=== PATIENT | male | born 1970 | race Caucasian/White ===

== ENCOUNTER 2018-08-24 10:53 | Inpatient (IN) ==
--- NOTE | 2018-08-24 12:29 | Diag Imaging Result Doc PS360 ---
EXAM: CT THORAX W/O CONTRAST 08/24/2018 HISTORY: cracked sternum/hematoma TECHNIQUE: This exam was performed using automated exposure control, adjustment of mA or kV according to patient size, and/or use of iterative reconstruction technique. COMMENT: There are no previous studies available for comparison. There is sclerosis of the medial right clavicle particularly in comparison with the left medial clavicle. There is some apparent erosion of the articular surface at the manubrial sternal joint. There is soft tissue swelling surrounding the medial right clavicle. There is an apparent old fracture of the right first rib. The sternum is intact. There is vacuum joint phenomenon at the manubrial sternal joint which is probably due to arthritis. There is some vacuum phenomenon in the left first costal cartilage. There are small bilateral pleural fluid collections. There is atelectasis or pneumonia in the posterior costophrenic sulci. There is a cavitary lesion present laterally in the left lower lobe on image 96. The outer borders of the relatively thick maradiaga extend 2.4 cm in AP dimension. There is apparent atelectatic change in the right lower lobe superior segment. There is an aorticopulmonary window node measuring 17 mm in long axis. There is a right paratracheal node measuring over 15 mm. There is anterior mediastinal soft tissue density which displaces the anterior apical pleura on the right and has somewhat poorly defined borders posteriorly. This appears to be continuous with the soft tissue swelling around the medial head of the right clavicle. IMPRESSION: 1. Sclerosis of the medial right clavicle and surrounding soft tissue swelling/mass/hematoma. 2. Mediastinal adenopathy as described. 3. Atelectasis versus pneumonia right lower lobe. Bibasilar subsegmental atelectasis. Small bilateral pleural effusions. 4. Poorly defined thick walled cavity in the left lower lobe. This could represent an abscess or cavitary tumor. Electronically signed by Gui Winslow 08/24/2018 12:26 PM
[2018-08-24 13:39] LABS: BASO# 0.03 X1000 (0.0-0.2); BASO% 0.2 % (0.0-0.8); EOS# 0.06 X1000 (0.0-0.7); EOS% 0.4 % (0.0-10.0); HEMOGLOBIN 17.4 g/dL (14.0-18.0); IMM GRAN# 0.13 X1000 (0.0-0.04); IMM GRAN% 0.8 % (0.0-0.5); LYMPH% 17.1 % (20.5-51.1); MCH 29.8 PG (27-31); MCHC 33.5 g/dL (33-37); MONO% 12.9 % (1.7-9.3); MPV 8.3 FL (7.4-10.4); NEUT# 11.21 X1000 (1.4-6.5); NEUT% 68.6 % (42.2-75.2); PLT 681 X1000 (130-400); RBC 5.84 XMIL (4.7-6.1); WBC 16.33 X1000 (4.8-10.8)
[2018-08-24 14:03] LABS: AGAP 18; ALB/GLOB RATIO 1.1; ALBUMIN 3.9 g/dL (3.5-5.0); ALKALINE PHOSPHATASE 215 U/L (32-122); BUN 19 mg/dL (8-22); CALCIUM 9.4 mg/dL (8.8-10.2); CHLORIDE 92 mmol/L (98-107); COSMO 265; CREATININE 0.7 mg/dL (0.7-1.2); ESTIMATED GFR > 60; GLUCOSE 102 mg/dL (70-104); GOT 20 U/L (10-34); GPT 30 U/L (10-44); POTASSIUM 5.5 mmol/L (3.5-5.1); SODIUM 131 mmol/L (136-145); TCO2 21 mmol/L (25-35); TOTAL BILIRUBIN 0.53 mg/dL (0.20-1.00); TOTAL PROTEIN 7.5 g/dL (6.3-8.3)
[2018-08-24] MEDS ORDERED: NS 1,000 ML IV ONE (14:40)
[2018-08-24] MEDS ORDERED: VANCOMYCIN IV PER PHARMACY MISC SCH (14:45)
--- NOTE | 2018-08-24 15:42 | EKG Report ---
Test Performed on : 08/24/2018 11:09:04 AM Test Reason : CP Blood Pressure : / mmHG Vent. Rate : 110 BPM Atrial Rate : 110 BPM P-R Int : 174 ms QRS Dur : 068 ms QT Int : 310 ms P-R-T Axes : 038 037 039 degrees QTc Int : 419 ms Sinus tachycardia. Septal infarct (cited on or before 24-AUG-2018) Abnormal ECG When compared with ECG of 24-AUG-2018 11:06, (Unconfirmed) QRS axis shifted left Serial changes of evolving Septal infarct present Unconfirmed Result
[2018-08-24] MEDS ORDERED: VANCOMYCIN 2,000 MG in NS 500 ML IV ONE (16:00)
--- NOTE | 2018-08-24 16:11 | PROVIDER DOCUMENTATION ---
This chart was entered by Liza Melara Scribe, acting as scribe for Piper Reeves CRNP. HPI-General Adult - General Chief Complaint: Generalized Pain Stated Complaint: "BROKEN STERNUM / BLOOD CLOT" Time Seen by Provider: 08/24/18 13:34 Source: patient Allergies/Adverse Reactions: Patient Allergies Allergy/AdvReac Type Severity Reaction Status Date / Time Penicillins Allergy Unknown Unknown Verified 09/22/17 19:47 Home Medications: Home Medication List Medication Instructions Recorded Confirmed Last Taken Type Cyclobenzaprine [Flexeril] 10 mg PO TID PRN #20 tab 09/22/17 Unknown Rx Hydrocodone/Acetaminophen [Lavalette 1 ea PO Q4-6H PRN PRN #14 tab 09/22/17 Unknown Rx 7.5-325 Tablet] Ibuprofen [Motrin] 800 mg PO Q8H PRN PRN #30 tab 09/22/17 Unknown Rx Diclofenac Na D.r. [Voltaren] 50 mg PO 4XDAY #20 tab 09/27/17 Unknown Rx Methocarbamol [Robaxin-750] 750 mg PO TID #15 tab 09/27/17 Unknown Rx Omeprazole [Prilosec] 20 mg PO DAILY@0700 #20 cap 09/27/17 Unknown Rx Hydroxyzine Pamoate [Vistaril] 25 mg PO BID PRN #20 cap 01/19/18 Unknown Rx - History of Present Illness -Gen Adult Nature of Presenting Problems: Patient is a 48 year old male who presents to the ED with right upper chest pain. Patient states he was discharged August 19 after being admitted at [facility] for a cracked sternum. Patient denies having another injury to sternum. Patient states the norco is not controlling the pain. Patient states shortness of breath. Location of Pain/Injury: reports: chest (right upper) Pain Radiation: reports: no radiation Quality of Pain: reports: aching Severity: reports: moderate Onset/Duration: reports: gradual, 6 days ago Timing: reports: still present, getting worse Context/Activities at Onset: reports: light activity Modifying Factors: improves with: nothing Associated Symptoms: reports: shortness of breath Similar Symptoms Previously?: Yes Recently seen or treated by another doctor?: Yes Review of Systems - Adult - REVIEW OF SYSTEMS - ADULT Constitutional: reports: no symptoms reported Eyes: reports: no symptoms reported Ears, Nose, Mouth & Throat: reports: no symptoms reported Cardiovascular: reports: chest pain. denies: heart murmur, irregular heart rate Respiratory: reports: shortness of breath. denies: cough, wheezing Gastrointestinal: reports: no symptoms reported Genitourinary: reports: no symptoms reported Musculoskeletal: reports: no symptoms reported Integumentary: reports: no symptoms reported Neurological: reports: no symptoms reported Psychiatric: reports: no symptoms reported Endocrine: reports: no symptoms reported Hematologic/Lymphatic: reports: no symptoms reported Allergic/Immunologic: reports: no symptoms reported All Other Systems: Reviewed and Negative Past History - Adult - PAST MEDICAL HISTORY-ADULT Review of Records: reports: Nursing Assessment Review, Medications Reviewed, Social history reviewed & non-contributory. Major Childhood Illnesses: reports: denies history Cardiovascular: reports: denies history Respiratory: reports: denies history Gastrointestinal: reports: denies history Obstetrical/Gynecological: reports: denies history Genitourinary: reports: denies history Musculoskeletal: reports: denies history Neurological: reports: denies history Psychiatric: reports: denies history Endocrine/Immune: reports: denies history Other Conditions: reports: denies history - PRIOR SURGERIES/PROCEDURES Surgical/Procedure History: reports: none - IMMUNIZATION STATUS Childhood Immunizations: See Nurse Assessment Flu Vaccine: See Nurse Assessment - FAMILY HISTORY Family History: reviewed, not pertinent - SOCIAL HISTORY Smoking: cigarettes, greater than 1 pack/day Provider spent 3-5 mins advising pt. on dangers of tobacco.: Discussed manners to quit use, and f/u contacts for add'l counseling. Substance Use: alcohol Alcohol Use Frequency: every day Number of drinks per typical drinking period:: 5-10 drinks Living Situation: family Physical Exam-General - PHYSICAL EXAM-ADULT Initial Vital Signs Reviewed: Yes - CONSTITUTIONAL General Appearance: appears well, alert, moderate distress - HEAD, EARS, NOSE, MOUTH & THROAT HENMT: normal ENT inspection - NECK Neck: normal inspection - RESPIRATORY Respiratory: lungs clear, normal breath sounds - CARDIOVASCULAR Cardiovascular: normal peripheral pulses, regular rate, rhythm - GASTROINTESTINAL (ABDOMEN) Abdominal Exam: normal bowel sounds, non tender, soft, other (swelling to right anterior upper chest near right clavicle.) - MUSCULOSKELETAL Extremity: non-tender, normal inspection - SKIN Integumentary: normal color, normal turgor, warm/dry - NEUROLOGIC Neurologic: grossly normal - PSYCHIATRIC Psych/Mental Status: normal mood/affect, oriented x 3 Progress - PLAN OF CARE/RESULTS Progress/Plan/Lab Results: Vital Signs - 8 hr 08/24/18 11:10 Temperature 97.2 F L Pulse Rate 112 H Respiratory Rate 18 Blood Pressure 162/99 O2 Sat by Pulse Oximetry 97 Laboratory Results - last 24 hr 08/24/18 08/24/18 08/24/18 11:15 11:15 11:15 WBC 16.33 H RBC 5.84 Hgb 17.4 Hct 52.0 MCV 89.0 MCH 29.8 MCHC 33.5 RDW Std Deviation 13.0 Plt Count 681 H MPV 8.3 Immature Gran % (Auto) 0.8 H Neut % (Auto) 68.6 Lymph % (Auto) 17.1 L Sierra % (Auto) 12.9 H Eos % (Auto) 0.4 Baso % (Auto) 0.2 Immature Gran # (Auto) 0.13 H Neut # (Auto) 11.21 H Lymph # (Auto) 2.80 Sierra # (Auto) 2.10 H Eos # (Auto) 0.06 Baso # (Auto) 0.03 Sodium 131 L Potassium 5.5 H Chloride 92 L Carbon Dioxide 21 L Anion Gap 18 BUN 19 Creatinine 0.7 Estimated GFR/1.73 m2 > 60 BUN/Creatinine Ratio 27 Glucose 102 Calculated Osmolality 265 Calcium 9.4 Total Bilirubin 0.53 AST 20 ALT 30 Alkaline Phosphatase 215 H Troponin T < 0.010 Total Protein 7.5 Albumin 3.9 Globulin 3.6 Albumin/Globulin Ratio 1.1 Orders Category Date Time Status Cardiac Monitoring DIRECTED Care 08/24/18 13:07 Active Vital Signs Order Q30M Care 08/24/18 13:[address] THORAX W/O CONTRAST [CT] Stat Exams 08/24/18 11:24 Completed BLOOD CULTURE [BLDCUL] Stat Lab 08/24/18 13:06 Uncollected CBC WITH DIFF [HEME] Stat Lab 08/24/18 11:15 Completed COMPREHENSIVE METABOLIC PANEL [CHEM] Stat Lab 08/24/18 11:15 Completed LACTATE, PLASMA [CHEM] Stat Lab 08/24/18 13:06 Uncollected TROPONIN T Stat Lab 08/24/18 11:15 Completed UA NIMS W/REFLEX CULT [URINALYSIS] Stat Lab 08/24/18 13:07 Uncollected 0.9% Sodium Chloride Inj [Ns] 1,000 ml Med 08/24/18 14:40 Active IV 999 mls/hr Pharmacy Order [Vancomycin IV Per Pharmacy] Med 08/24/18 14:45 Ordered 1 each MISC DIRECTED EKG [EKG] Stat Ther 08/24/18 13:07 Ordered Discuss[address] case with Dr. Haro at 1450. Md accepted admission. Pt in agreement with admission plan. Heart Score 3. Result Diagrams: 08/24/18 11:15 08/24/18 11:15 - CT/MRI 1 CT Study: Thorax Impression: See EMR Report ( ADDENDUM The previous examinations of 08/16 and 08/12/2018 performed at [facility] are now available for comparison. The soft tissue swelling/mass in the substernal region is slightly smaller than on the previous examination of 08/16/2018 measuring 2.4 cm in thickness versus almost 2.6 cm on the previous study. There is slightly more soft tissue swelling around the medial head of the clavicle however than on the previous examination. The cavitary lesion in the left lower lobe was not present on the previous study now the pleural fluid collections or atelectatic changes in the lung bases. IMPRESSION: The rapid onset of the cavitary lesion in the left lower lobe is highly suggestive of septic embolus. Atelectasis versus pneumonia both lower lobes. The findings were discussed with Aliya Velasco MD at 08/24/2018 1:05 PM. Electronically signed by Gui Winslow 1:05 PM 08/24/18 1307 Addendum Dictated By: Gui Winslow MD : 08/24/18 / 1259 cc: Signed EXAM: CT THORAX W/O CONTRAST 08/24/2018 HISTORY: cracked sternum/hematoma TECHNIQUE: This exam was performed using automated exposure control, adjustment of mA or kV according to patient size, and/or use of iterative reconstruction technique. COMMENT: There are no previous studies available for comparison. There is sclerosis of the medial right clavicle particularly in comparison with the left medial clavicle. There is some apparent erosion of the articular surface at the manubrial sternal joint. There is soft tissue swelling surrounding the medial right clavicle. There is an apparent old fracture of the right first rib. The sternum is intact. There is vacuum joint phenomenon at the manubrial sternal joint which is probably due to arthritis. There is some vacuum phenomenon in the left first costal cartilage. There are small bilateral pleural fluid collections. There is atelectasis or pneumonia in the posterior costophrenic sulci. There is a cavitary lesion present laterally in the left lower lobe on image 96. The outer borders of the relatively thick maradiaga extend 2.4 cm in AP dimension. There is apparent atelectatic change in the right lower lobe superior segment. There is an aorticopulmonary window node measuring 17 mm in long axis. There is a right paratracheal node measuring over 15 mm. There is anterior mediastinal soft tissue density which displaces the anterior apical pleura on the right and has somewhat poorly defined borders posteriorly. This appears to be continuous with the soft tissue swelling around the medial head of the right clavicle. IMPRESSION: 1. Sclerosis of the medial right clavicle and surrounding soft tissue swelling/mass/hematoma. 2. Mediastinal adenopathy as described. 3. Atelectasis versus pneumonia right lower lobe. Bibasilar subsegmental atelectasis. Small bilateral pleural effusions. 4. Poorly defined thick walled cavity in the left lower lobe. This could represent an abscess or cavitary tumor. Electronically signed by Gui Winslow 08/24/2018 12:26 PM 1226 Interpreting Physician: Gui Winslow MD Dictated Date/Time: 08/24/18 1207 cc: Aliya Velasco MD; None,PCP) - CONSULTS/PCP/HOSPITALIST Notification #1 *Consult/PCP/Hospitalist*: Dr. Haro Time Discussed: 14:53 Reason/Comments: Piper Reeves NP, consulted with Dr. Haro about patient Consult Disposition: Will see in ED, Admit Departure - Departure Date of Disposition Decision: 08/24/18 Time of Disposition Decision: 14:50 DIAGNOSIS: Septic embolism, SOB (shortness of breath) Chest pain Qualifiers: Chest pain type: unspecified Qualified Code(s): R07.9 - Chest pain, unspecified Disposition: ADMITTED INPATIENT 09 Certified Medical Emergency: Emergent Condition: Stable Referrals and Follow-Ups: None,PCP [Primary Care Provider] - - Critical Care Note This patient required my direct & personal management of CC.: No Attestation - Physician/ TREY Attestation Patient care was provided by Advanced Practice Provider:: Yes Advanced Practice Provider:: Piper Reeves Advanced Practice Provider documentation review:: The Mid-level provider documentation, treatment plan and medical decision making was reviewed by the physician who agrees with all treatment and medical decision making by the MLP. The physician spent face to face time with patient:: No Advanced Practice Provider documentation review:: Supervising physician onsite and consulted in the evaluation and care of this patient. The physician did not have a face to face encounter with the patient. This chart was documented by the indicated scribe, (Liza Melara Scribe) and accurately reflects the services I performed and decisions made by , Piper Reeves CRNP, as attested by the provider's signature.
[2018-08-24] MEDS ORDERED: TYLENOL PO PRN (16:36)
[2018-08-24] MEDS: NS 1,000 ML IV SCH ×2 (16:36→17:30)
[2018-08-24] MEDS ORDERED: FLEXERIL PO PRN (16:36)
[2018-08-24] MEDS ORDERED: ZOFRAN IV PRN (16:36)
[2018-08-24] MEDS ORDERED: DILAUDID ONE (16:48)
[2018-08-24] MEDS: DILAUDID IV PRN (16:56)
[2018-08-24] MEDS: ROBAXIN PO SCH (17:50)
[2018-08-24] MEDS ORDERED: LEVAQUIN 750 MG/D5W 750 MG/150 ML IVPB IV SCH (18:30)
[2018-08-24] MEDS: PULMICORT INH SCH (19:30)
[2018-08-24] MEDS: XOPENEX NEB INH SCH ×2 (19:30→23:30)
[2018-08-24] MEDS: MUCOMYST 20% INH SCH (19:30)
[2018-08-24] MEDS: ATROVENT NEB INH SCH ×2 (19:30→23:30)
--- NOTE | 2018-08-24 19:30 | HISTORY AND PHYSICAL ---
PRIMARY CARE PROVIDER: No one. CHIEF COMPLAINT: Shortness of breath and pain in the right subcutaneous tissues of his chest. HISTORY OF THE PRESENT ILLNESS: Mr. Sergei Villatoro is a 48-year-old male with medical history of hypertension and a couple of syncopal spells with alcohol abuse. He states that around three weeks ago he had a syncopal spell where he passed out and hit his sternum. He waited at least five days later after the fall before he presented to [place], who then sent him to [place], who kept him for at least four days. There was no central line or peripheral line placed. They treated his pain. It looks like they sent him home with relaxers, [place], and something for his blood pressure. They said he ran out of his pain medication and came here. He states for at least five days he has had worsening shortness of breath, nocturnal sweats for two nights, significant pain in the right chest, shoulder, and neck area where it is swelling and feels hot. He started yesterday morning where he started coughing up blood. It was dark and bright red. He has done it twice today, but only about a half dollar size. White count is 16. He is not febrile. We do not have a lactate to look at. He had imaging performed, which showed a chest CT that showed a rapid onset of cavitary lesion in the left lower lobe which is highly suggestive of septic embolus. There is also some sclerosis of the medial right clavicle and surrounding soft tissues with swelling, mass, or hematoma. Mediastinal adenopathy. Right lower lobe pneumonia. He has got small bilateral pleural effusions and in the left lower lobe could possibly have an abscess or a cavitary tumor. We will admit to [facility], consult Pulmonary, Infectious Disease, and Surgery. Vital signs are currently stable. We are going to treat his pain as well with antibiotic therapy. PAST MEDICAL HISTORY: 1. Hypertension. 2. A couple of syncopal spells recently. SURGICAL HISTORY: None. SOCIAL HISTORY: Less than two pack per day smoker for at least 16 years. Drinks 15-18 beers daily. Did not drink since his fall all the way up until he got out of the hospital this last Tuesday. He said he drank two six-packs and it made him significantly sick, so he has not drank since then. He smokes marijuana, the last time was around three weeks. He states he takes about one to two hits per day. He is currently not working. FAMILY HISTORY: Mother's side of the family had several brothers with myocardial infarction under the age of 60. Father, no medical history. ALLERGIES: Penicillin. He states that at a young age it caused anaphylaxis. HOME MEDICATIONS: Not verified. The ones that are listed are not current or up to date. Waiting for those to be reconciled. REVIEW OF SYSTEMS: A 14-point review of systems are complete and all were negative except for those mentioned above in HPI. The pain is so severe in his right chest, neck area, and back it is about a 10/10 and the man is crying. PHYSICAL EXAMINATION: VITAL SIGNS: Temperature 97.2, heart rate 112, respiratory rate 18, blood pressure 162/99, O2 saturation 97% on room air. He is 6 feet 2 inches tall and 220 pounds with a BMI of 28.2. GENERAL: Mr. Sergei Villatoro is a 48-year-old male. He is in no acute distress but he is very tearful over the pain that he is having. He is able to answer questions appropriately. HEENT: Atraumatic, normocephalic. Pupils equal, round, and reactive to light. Extraocular movements intact. Mucous membranes are dry. He has got very poor dentition. NECK: There is some puffiness around the right side of his neck. His trachea is midline. CARDIOVASCULAR: S1, S2. Tachycardic rate and rhythm. No rubs, gallops, or murmurs. No lower extremity edema. Bilateral lower extremities with the feet cool with decreased pulses in the left foot and poor capillary refill. Right foot has +2 radial pulses. Negative for JVD or carotid bruit. PULMONARY: Clear to auscultation. Decreased in the bases. A little mild accessory muscle use. Currently tolerating room air. GI: Soft, nontender, nondistended. Positive bowel sounds x4. EXTREMITIES: Moves all extremities equally with full range of motion . NEUROLOGIC: Alert and oriented x3. Follows commands. Sensory is intact but decreased in bilateral feet. SKIN: Warm, dry, intact except for paleness in the feet and discoloration. There is also on the right chest swelling that is very painful to palpation. Actually, he has difficulty moving that right arm due to the pain. LABORATORY DATA: White blood cells 16,000, hemoglobin 17, hematocrit 52, platelet count 681. Sodium 131, potassium 5.5, BUN 19, creatinine 0.7, glucose 102, calcium 9.5, bilirubin 0.53, AST 20, ALT 30. Troponin less than 0.01. Albumin 3.9. IMAGING: Chest CT: Rapid onset of cavitary lesion in the left lower lobe, highly suggestive of septic emboli. Sclerosis of the medial right clavicle and surrounding soft tissue swelling mass, hematoma, mediastinal adenopathy. Pneumonia in the right lower lobe. Bilateral pleural effusions. In the left lower lobe there could possibly be abscess or cavitary tumor. EKG: Sinus tachycardia, rate 110. QTC 419. ASSESSMENT AND PLAN: 1. Shortness of breath, now with high suspicion of cavitary lesion or tumor in the left lower lobe, possibly from septic emboli. He has also got a right lower lobe pneumonia. He has got bilateral pleural effusions. Will start him on broad-spectrum antibiotics. Will consult Surgery and Infectious Disease and Pulmonary. He will be on nebulizers as well. 2. Right chest soft tissue swelling, mass, hematoma with sclerosis of the medial right clavicle that is causing him significant pain. Will do pain medications for treatment. 3. Leukocytosis. Cultures obtained. Broad-spectrum antibiotics. 4. Hypertension. Stable for right now. 5. Alcohol abuse. Of course he is claiming that he has not drank alcohol except for one time in the last three weeks, with the last time being Tuesday. Will monitor closely for any signs of withdrawals. Will do some p.r.n. Ativan. 6. Complaints of numbness in the bottoms of both feet. Both feet are cool and there is decreased pulse in the left with prolonged capillary refill. Will do arterial and venous studies of lower extremities. Will also do a hemoglobin A1c to check for any signs of diabetes or neuropathy. 7. Deep vein thrombosis prophylaxis, Lovenox. 8. Tobacco abuse. Cessation discussed. Dictated by ELENA Cox for Timo Goodman MD Addendum: Patient seen and examined by myself. Agree with ELENA note. It reflects my assessment and plan. Patient is being admitted to hospital for right lower lobe pneumonia. Will start Vancomycin and Zosyn and will consult ID and Pulmonary. He reported had been admitted to a hospital in [place] for a sternum fracture. Report from CT did not mention anything about it. Will provide pain medicine for lower back pain and Duoneb nebs as well. cc: ELENA Cox MD MTDD
[2018-08-24 21:02] LABS: URINE SOURCE CLEAN CATCH
[2018-08-24 21:09] LABS: BILIRUBIN URINE NEGATIVE (NEGATIVE); BLOOD URINE NEGATIVE (NEGATIVE); COLOR YELLOW; GLUCOSE URINE NEGATIVE (NEGATIVE); KETONE URINE NEGATIVE (NEGATIVE); LEUKOCYTES URINE NEGATIVE (NEGATIVE); NITRITE URINE NEGATIVE (NEGATIVE); PROTEIN URINE TRACE mg/dL (NEGATIVE); SP GRAVITY URINE 1.025; TURBIDITY URINE CLEAR (CLEAR); UROBILINOGEN URINE 2 mg/dL (NORMAL)
[2018-08-24 21:10] LABS: UR EPITHELIAL CELLS <10 /HPF (<10); URINE BACTERIA NEGATIVE /HPF; URINE RBC <10 /HPF (<10); URINE WBC <10 /HPF (<10)
[2018-08-24 21:24] LABS: UR AMPHETAMINES QUAL NONE DETECTED (NONE DETECT); UR BARBITUATES QUAL NONE DETECTED (NONE DETECT); UR BENZODIAZEPIN QUAL PRESUMPTIVE POSITIVE (NONE DETECT); UR CANNABINOIDS QUAL PRESUMPTIVE POSITIVE (NONE DETECT); UR COCAINE QUAL NONE DETECTED (NONE DETECT); UR METHADONE QUAL NONE DETECTED (NONE DETECT); UR OPIATES QUAL PRESUMPTIVE POSITIVE (NONE DETECT); UR OXYCODONE QUAL NONE DETECTED (NONE DETECT); UR PCP QUAL NONE DETECTED (NONE DETECT)
[2018-08-25] MEDS: DILAUDID IV PRN ×6 (00:22→21:11)
[2018-08-25] MEDS: NORCO-7.5 PO PRN ×3 (01:23→11:55)
[2018-08-25] MEDS: NS 1,000 ML IV SCH ×2 (03:16→23:20)
[2018-08-25] MEDS: ATROVENT NEB INH SCH ×6 (03:30→23:35)
[2018-08-25] MEDS: XOPENEX NEB INH SCH ×6 (03:30→23:35)
--- NOTE | 2018-08-25 03:53 | CONSULTATION ---
DATE OF CONSULTATION: 08/24/2018 REQUESTING PROVIDER: Dr. Timo Haro. REASON FOR CONSULTATION: Pneumonia, septic emboli. HISTORY OF PRESENT ILLNESS: This is a 48-year-old male with a medical history of hypertension with chronic daily tobacco, alcohol and occasional marijuana use. He presented to the ER this morning with severe sharp right upper chest pain radiating up to the right neck and then down to the right back. Lab revealed leukocytosis, thrombocytosis, hyponatremia, hypokalemia and hypochloremia. Chest CT without contrast revealed a slightly smaller soft tissue swelling or mass in the right substernal region, slightly more soft tissue swelling around the medial head of the clavicle, a rapid onset of cavitary lesion in the left lower lobe highly suggestive of septic embolus, atelectasis versus pneumonia of both lower lobes and small bilateral pleural effusions. At the time of my examination, patient is lying in the bed with severe pain. He is anxious and tearful with moaning or crying at times. Based on his report, he apparently had an episode of syncope on the evening of 08/06/2018. He broke his right sternum at that time, but he did not see a doctor until 5 or 6 days after that incident. He went to [facility] for severe right upper chest pain. There, he was found to have a cracked sternum. He was discharged home soon. Later, he went to see his family doctor who directly sent him to [facility]. During that hospital stay, he was told he had a blood clot around that broken sternum. He was discharged home on the evening of 08/18/2018 with [place] 10 for pain control. He took it every 4 hours and did not relief pain well. The pain got worse since the morning of 08/22/2018. It was so severe that he has difficulty to catch his breath and he even could not eat, or drink or sleep. Yesterday, he started coughing up some dark red blood clot smaller than the size of a coin with pleuritic pain in the left lower lung zone under the left lowest rib. He reports he stays diaphoretic or chilled. He wakes up soaked and feels panic in the morning. He reports chronic dry cough before but started coughing up yellow-greenish sputum since he was discharged from [facility]. He also reports bilateral lower extremity tender and tingling during the examination. He denies fever, nausea, vomiting, or constipation. He had been admitted to the [facility] for further evaluation and management. PAST MEDICAL HISTORY: Hypertension. PAST SURGICAL HISTORY: None. SOCIAL HISTORY: He is and lives at home with his family. He is currently unemployed. He smokes at least a pack per day for a long time. He drinks 15 to 18 beers daily for a long time. He smokes marijuana at times. He denies other recreational drug use. FAMILY HISTORY: Positive for significant hypertension and heart attack. ALLERGIES: Penicillins. REVIEW OF SYSTEMS: A 10 point review of systems was conducted and the pertinent is listed within the HPI, otherwise noncontributory. PHYSICAL EXAMINATION: Vital Signs: Temperature 97.2, blood pressure 162/99, pulse 112, respiratory rate 18, oxygen saturation 97% at room air. General: Appears older than stated age, anxious and tearful with moaning or crying at times, in mild respiratory distress. HEENT: Atraumatic. Trachea midline. Mucosa pink and dry. Swelling and warm to touch to right anterior upper chest near right clavicle. Respiratory: Shallow chest expansion equal bilaterally. Diminished breathing sounds bibasilarly. Otherwise clear to auscultation. Cardiovascular: Sinus tachycardia. Regular rate and rhythm without murmur noted. Gastrointestinal: Bowel sounds normoactive in all 4 quadrants, nontender, nondistended. Extremities: No pedal edema. Left lower extremity cold to touch with mild cyanosis and decreased dorsalis pedis pulse. Right lower extremity warm with dorsalis pedis 2+. Neurologic: Alert, oriented x3. Speech fluent. Follows commands. IMAGING DATA: See HPI. LAB DATA: White blood cell 16.33, hemoglobin 17.4, hematocrit 50.0, platelet 681,000. Sodium 131, potassium 5.5, chloride 92, carbon dioxide 21, BUN 19, creatinine 0.7, glucose 102. ASSESSMENT: This is a 48-year-old male with medical history of hypertension with chronic daily tobacco, alcohol and occasional marijuana use. He has been admitted to the [facility] with possible pneumonia and septic emboli. 1. Right lower lobe pneumonia. 2. Septic emboli. 3. Hematosis. 4. Small bilateral pleural effusions. 5. Shortness of breath. 6. Tobacco abuse. 7. Alcohol abuse. 8. Left lower extremity cyanosis. PLAN: 1. Continue pain control. 2. Continue broad spectrum antibiotics. Dr. Power is on board. 3. Continue bronchodilators and bronchial hygiene. 4. Vital signs are stable. No shock noted. Continue current anticoagulants. 5. Supplemental oxygen as needed. 6. Consider arterial and venous studies. 7. Follow up with sputum and blood C&S. 8. Follow with ABG, CBC, CMP, and chest x-ray. 9. Consider nicotine replacement therapy; daily educate the need to quit smoking and means of smoking cessation. 10. Continue GI and DVT prophylaxis. Thank you for the courtesy of this consult. Dictated by ELENA Jorgensen for Adams Ribeiro MD cc: ELENA Jorgensen MD [facility]
[2018-08-25] MEDS: VANCOMYCIN 2,000 MG in NS 500 ML IV SCH ×2 (05:10→16:31)
[2018-08-25 06:18] LABS: BASO# 0.02 X1000 (0.0-0.2); BASO% 0.1 % (0.0-0.8); EOS# 0.06 X1000 (0.0-0.7); EOS% 0.4 % (0.0-10.0); HEMATOCRIT 47.3 % (42.0-52.0); HEMOGLOBIN 15.5 g/dL (14.0-18.0); IMM GRAN# 0.17 X1000 (0.0-0.04); IMM GRAN% 1.1 % (0.0-0.5); LYMPH# 2.83 X1000 (1.2-3.4); MCH 29.9 PG (27-31); MCHC 32.8 g/dL (33-37); MCV 91.3 FL (81-99); MONO# 1.63 X1000 (0.11-0.59); MONO% 10.3 % (1.7-9.3); MPV 7.8 FL (7.4-10.4); NEUT# 11.04 X1000 (1.4-6.5); NEUT% 70.1 % (42.2-75.2); PLT 605 X1000 (130-400); RBC 5.18 XMIL (4.7-6.1); RDW 12.9 % (11.5-14.5); WBC 15.75 X1000 (4.8-10.8)
--- NOTE | 2018-08-25 06:28 | Diag Imaging Result Doc PS360 ---
EXAM: CHEST-PORTABLE HISTORY: pna TECHNIQUE: Portable upright chest COMPARISON: 01/19/2018 FINDINGS: Poor inspiratory effort. The heart is not enlarged. The vessels are not distended. There are mild increased markings in the left lung base as well as in the right apex. No effusion identified. IMPRESSION: Atelectasis versus small infiltrates in the left base and upper right lung. Follow-up PA and lateral recommended. Electronically signed by Fran Roca 08/25/2018 6:26 AM
[2018-08-25 06:29] LABS: INR 0.99; PROTIME 13.9 Seconds (11.0-16.0)
[2018-08-25 06:30] LABS: PTT 33.6 Seconds (22.3-41.8)
[2018-08-25 06:36] LABS: AGAP 14; ALB/GLOB RATIO 0.8; ALBUMIN 3.1 g/dL (3.5-5.0); ALKALINE PHOSPHATASE 207 U/L (32-122); BUN 13 mg/dL (8-22); CHLORIDE 96 mmol/L (98-107); CK PROFILE 42 U/L (24-204); COSMO 267; CREATININE 0.7 mg/dL (0.7-1.2); ESTIMATED GFR > 60; GLUCOSE 99 mg/dL (70-104); GOT 23 U/L (10-34); GPT 30 U/L (10-44); MAGNESIUM 2.3 mg/dL (1.5-2.7); POTASSIUM 4.7 mmol/L (3.5-5.1); SODIUM 133 mmol/L (136-145); TCO2 23 mmol/L (25-35); TOTAL BILIRUBIN 0.82 mg/dL (0.20-1.00); TOTAL PROTEIN 6.9 g/dL (6.3-8.3)
--- NOTE | 2018-08-25 06:50 | EKG Report ---
Test Performed on : 08/25/2018 06:41:38 AM Test Reason : septic emboli Blood Pressure : / mmHG Vent. Rate : 092 BPM Atrial Rate : 092 BPM P-R Int : 182 ms QRS Dur : 080 ms QT Int : 342 ms P-R-T Axes : 024 035 034 degrees QTc Int : 422 ms Normal sinus rhythm. Normal ECG When compared with ECG of 24-AUG-2018 11:09, (Unconfirmed) No significant change was found Confirmed by Lincoln Galloway MD ([id number]) on 08/25/2018 6:51:01 AM
[2018-08-25] MEDS ORDERED: MAXIPIME 2 GM in NS 100 ML IV SCH (08:30)
[2018-08-25] MEDS: PULMICORT INH SCH ×2 (08:40→19:20)
[2018-08-25] MEDS: MUCOMYST 20% INH SCH ×2 (08:40→19:20)
[2018-08-25] MEDS: PRILOSEC PO SCH (09:17)
[2018-08-25] MEDS: MAXIPIME 2 GM in NS 100 ML IV SCH ×2 (09:17→21:10)
[2018-08-25] MEDS: LOVENOX SUBQ SCH (09:19)
[2018-08-25] MEDS: ROBAXIN PO SCH ×3 (09:19→21:24)
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
--- NOTE | 2018-08-25 14:45 | ECHO REPORT ---
ORDER DATE: 08/24/2018 ECHOCARDIOGRAPHY: ECHOCARDIOGRAPHIC MEASUREMENTS: Interventricular septum 1.1, left ventricular posterior wall 1.1, diastolic diameter 4.0, left atrium 4.1, aorta 3.3. SUMMARY: 1. Normal left ventricular cavity size. Estimated ejection fraction of 70%. There is hyperdynamic circulation. Mitral valve was normal. Aortic valve leaflets are trileaflet. Pulmonic valve was normal. Tricuspid valve was normal. 2. Technically suboptimal study. Poor apical windows. There is trace mitral regurgitation and trace tricuspid regurgitation. Peak velocity across the tricuspid valve less than 2 m/sec. Peak velocity across the aortic valve was less than 2 m/sec. 3. There is no pericardial effusion or obvious intracardiac mass or thrombus. cc: MD Timo Shell MD
[2018-08-25] MEDS: NORCO-10 PO PRN (16:28)
--- NOTE | 2018-08-25 16:31 | Diag Imaging Result Doc PS360 ---
EXAM: CT ANGIOGRAM AORTA W/RUNOFF INDICATION: suspected aneurysm, heavy smoker TECHNIQUE: This exam was performed using automated exposure control, adjustment of mA or kV according to patient size, and/or use of iterative reconstruction technique. Thin section axial images and 3-D MIPS were obtained. COMPARISON: None. FINDINGS: There is no evidence of significant abdominal aortic atherosclerotic disease. There is no aneurysm or dissection identified. The iliac arteries are also widely patent. The major branches of the aorta including the celiac trunk, mesenteric arteries, and renal arteries are all widely patent. There is trace pleural fluid at the left lung base and there is bibasilar subsegmental atelectasis. The known consolidation with internal cavitation at the left lung base is again identified and appears more extensive when compared to a prior CT chest dated 08/24/2018. There is probably minimal hepatic steatosis. The liver is unremarkable, otherwise. The gallbladder, spleen, pancreas, adrenal glands, kidneys, urinary bladder, and GI tract are essentially unremarkable. There is no significant atherosclerotic disease involving the arteries of both the right and the left lower extremities. There is no flow-limiting stenosis, aneurysm, or vascular malformation identified. There is three-vessel runoff to both feet. IMPRESSION: 1.No significant aortoiliac or lower extremity atherosclerotic disease identified. No evidence of abdominal aortic aneurysm. 2.Subsegmental atelectasis at both lung bases with a trace left effusion. Infiltrate at the left lung base has worsened since yesterday's CT chest. Electronically signed by Farhad Mcdonough 08/25/2018 4:29 PM
[2018-08-25] MEDS: LIBRIUM PO SCH ×2 (17:34→23:20)
--- NOTE | 2018-08-25 17:34 | PROGRESS NOTE ---
DATE: 08/25/2018 SUBJECTIVE: The patient continues to report pain in the lower back and also pain in between shoulder blades. Shortness of breath is definitely getting better according to him. OBJECTIVE: Vital Signs: Temperature 98.5, heart rate 88, respiratory rate 21, blood pressure 141/89, and O2 saturation 97% on 2 L nasal cannula. General: This is a chronically ill-appearing 48-year-old male, lying in bed. HEENT: Head is normocephalic, atraumatic. Mucous membranes dry. Neck: No JVD noted. No carotid bruits. No lymphadenopathy. No thyromegaly. Cardiovascular: S1 and S2 heard. No murmurs, gallops, or rubs. Regular rate and rhythm. Respiratory: Clear bilaterally to auscultation. No work of breathing or using accessory muscles. Mild pain to palpation in the sternal area. Abdomen: Soft, nontender to palpation. Bowel sounds present. No organomegaly. Extremities: No clubbing, cyanosis, or edema. The left lower extremity is colder than the right. Peripheral pulses in the left leg present as well as in the right. Neurological: Patient alert and oriented x3. Moves 4 extremities. LABORATORY DATA: White cell count 15.75, hemoglobin 15.5, hematocrit 47.3, platelets 605,000. Normal BMP except sodium 133. UDS was positive for opiates, benzodiazepines, and marijuana. ASSESSMENT AND PLAN: 1. Bibasilar pneumonia/left lower lobe cavitary mass. Dr. Power has been consulted for management of antibiotics. There was a suspicion for possible septic emboli according to the CT. At this point, considering this septic emboli and cavitary lesion, as we mentioned before we have consulted Dr. Power. Currently, this patient is on cefepime 2 grams intravenously every 12 hours and vancomycin per pharmacy as well. We will continue with the same management. 2. Hypertension. Blood pressure is under control. We will continue with the same management. 3. Alcohol abuse. Aware. We will monitor any early signs of withdrawal. Will start Librium and Ativan. 4. Possible peripheral vascular disease. The patient has the lower extremity that is a definitely colder than the right. The patient has a history of tobacco abuse , so in order to rule out any aneurysm or obstruction, we are going to do a CT aorta with runoff and we will see what it shows. 5. Deep vein thrombosis prophylaxis. Patient is on Lovenox. 6. Tobacco abuse. The patient has been strongly advised to stop smoking. 7. Disposition. We will monitor this patient closely in [facility]. cc: Timo Goodman MD MTDD
[2018-08-25] MEDS: ATIVAN IV PRN ×2 (17:40→23:20)
[2018-08-26] MEDS: ATROVENT NEB INH SCH ×2 (03:33→07:50)
[2018-08-26] MEDS: XOPENEX NEB INH SCH ×2 (03:34→07:50)
[2018-08-26] MEDS: VANCOMYCIN 2,000 MG in NS 500 ML IV SCH ×2 (03:42→16:57)
[2018-08-26] MEDS: NORCO-10 PO PRN ×3 (03:42→21:19)
[2018-08-26 05:42] LABS: BASO# 0.03 X1000 (0.0-0.2); BASO% 0.2 % (0.0-0.8); EOS% 0.7 % (0.0-10.0); HEMATOCRIT 45.3 % (42.0-52.0); HEMOGLOBIN 14.9 g/dL (14.0-18.0); IMM GRAN# 0.11 X1000 (0.0-0.04); IMM GRAN% 0.7 % (0.0-0.5); LYMPH# 2.16 X1000 (1.2-3.4); LYMPH% 14.5 % (20.5-51.1); MCH 29.9 PG (27-31); MCHC 32.9 g/dL (33-37); MCV 90.8 FL (81-99); MONO# 1.64 X1000 (0.11-0.59); MPV 7.9 FL (7.4-10.4); NEUT# 10.84 X1000 (1.4-6.5); NEUT% 72.9 % (42.2-75.2); PLT 621 X1000 (130-400); RBC 4.99 XMIL (4.7-6.1); RDW 12.8 % (11.5-14.5); WBC 14.88 X1000 (4.8-10.8)
[2018-08-26 06:02] LABS: AGAP 13; BUN 9 mg/dL (8-22); CALCIUM 8.6 mg/dL (8.8-10.2); CHLORIDE 94 mmol/L (98-107); COSMO 260; CREATININE 0.7 mg/dL (0.7-1.2); ESTIMATED GFR > 60; GLUCOSE 112 mg/dL (70-104); POTASSIUM 4.4 mmol/L (3.5-5.1); SODIUM 130 mmol/L (136-145); TCO2 23 mmol/L (25-35)
[2018-08-26] MEDS: ATARAX PO PRN (06:26)
[2018-08-26] MEDS: PRILOSEC PO SCH (06:26)
[2018-08-26] MEDS: LIBRIUM PO SCH ×4 (07:58→23:54)
[2018-08-26] MEDS: MORPHINE IV PRN ×4 (08:23→23:54)
[2018-08-26] MEDS: TORADOL IV SCH ×3 (08:23→19:34)
[2018-08-26] MEDS: PROTONIX IV SCH (08:56)
[2018-08-26] MEDS: SOLU-MEDROL IV SCH ×3 (08:57→23:54)
[2018-08-26] MEDS: SODIUM CHLORIDE 0.9% INJ SCH (08:57)
[2018-08-26] MEDS: LOVENOX SUBQ SCH (08:57)
[2018-08-26] MEDS: MAXIPIME 2 GM in NS 100 ML IV SCH ×2 (08:58→19:34)
[2018-08-26] MEDS: ROBAXIN PO SCH ×4 (08:59→21:13)
[2018-08-26] MEDS: NS 1,000 ML IV SCH ×3 (09:00→23:54)
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
[2018-08-26] MEDS: DUONEB (A & A) INH SCH ×4 (11:16→23:27)
[2018-08-26] MEDS: MUCOMYST 20% INH SCH ×2 (11:16→19:30)
[2018-08-26] MEDS: PULMICORT INH SCH (11:17)
[2018-08-26] MEDS: ATIVAN IV PRN (12:58)
--- NOTE | 2018-08-26 15:16 | GENERAL SURGERY CONSULTATION ---
DATE: 08/26/2018 TIME OF EXAM: 11:20 a.m. HISTORY OF PRESENT ILLNESS: Mr. Higginbotham reports pleuritic chest pain in the left lower lung. He has some tenderness in the right upper anterior chest. He was admitted on the because of the symptoms. He had been treated previously in [place] for a few days but was discharged. I have been asked to see him about his possible cavitary lesion of the left lung. PAST MEDICAL HISTORY: Pertinent for alcohol abuse, hypertension, some syncopal spells. No previous surgery. SOCIAL HISTORY: He smokes regularly. He does drink regularly. He apparently uses marijuana as well. FAMILY HISTORY: Pertinent for coronary artery disease. MEDICATIONS: Listed. ALLERGIES: Penicillin. REVIEW OF SYSTEMS: As noted above. PHYSICAL EXAMINATION: Vital Signs: He is afebrile. Heart rate 88, blood pressure 140/79, respiratory rate 18. Chest: He has diminished breath sounds in the left base. No friction or rub is heard. He is tender to palpation to the upper anterior chest. Heart: Regular rate and rhythm. Abdomen: Soft. Extremities: He has no peripheral edema. Neurologic: He is awake and alert. LABORATORY AND DIAGNOSTIC [place]: [place] [address], hemoglobin 14.9. Chemistry is okay. CT scan shows a small cavitary lesion in the left lower lobe. ASSESSMENT: The etiology of his cavitary lesion is uncertain. Lung abscess is typically treated with antibiotic therapy successfully. At this point, I see no reason for operative intervention. I will follow along. cc: Lenny Ugalde MD MTDD
[2018-08-27] MEDS: VANCOMYCIN 2,000 MG in NS 500 ML IV SCH ×2 (03:15→16:27)
[2018-08-27] MEDS: TORADOL IV SCH ×4 (03:15→19:52)
[2018-08-27] MEDS: DUONEB (A & A) INH SCH ×5 (03:38→19:25)
[2018-08-27] MEDS: LIBRIUM PO SCH ×5 (05:37→22:50)
[2018-08-27] MEDS: PRILOSEC PO SCH ×2 (05:37→06:19)
[2018-08-27] MEDS: NORCO-10 PO PRN ×3 (05:39→14:50)
[2018-08-27 06:54] LABS: BASO# 0.05 X1000 (0.0-0.2); BASO% 0.3 % (0.0-0.8); HEMOGLOBIN 14.8 g/dL (14.0-18.0); IMM GRAN# 0.13 X1000 (0.0-0.04); IMM GRAN% 0.7 % (0.0-0.5); LYMPH# 1.04 X1000 (1.2-3.4); LYMPH% 5.7 % (20.5-51.1); MCHC 32.9 g/dL (33-37); MCV 94.3 FL (81-99); MONO# 0.55 X1000 (0.11-0.59); MPV 8.1 FL (7.4-10.4); NEUT# 16.61 X1000 (1.4-6.5); NEUT% 90.3 % (42.2-75.2); PLT 589 X1000 (130-400); RBC 4.77 XMIL (4.7-6.1); WBC 18.38 X1000 (4.8-10.8)
--- NOTE | 2018-08-27 06:58 | GENERAL SURGERY PROGRESS NOTE ---
DATE: 08/27/2018 Mr. Villatoro states that he feels a little bit better, has a little bit less pain. He has bilateral breath sounds. No friction rub is heard on the left. He is afebrile. Hemodynamics are okay. His white count is pending today but it has been trending down. Hopefully, he will continue respond to antibiotic therapy and no operative interventional will be indicated. cc: Lenny Ugalde MD
[2018-08-27 07:12] LABS: LYMPHS 6 % (21-51); MONO 2 % (1-9); SEGS 92 % (42-75)
[2018-08-27] MEDS: MUCOMYST 20% INH SCH ×2 (07:42→19:28)
[2018-08-27 07:47] LABS: AGAP 13; BUN 15 mg/dL (8-22); CALCIUM 9.2 mg/dL (8.8-10.2); CHLORIDE 101 mmol/L (98-107); COSMO 276; CREATININE 0.7 mg/dL (0.7-1.2); ESTIMATED GFR > 60; GLUCOSE 185 mg/dL (70-104); POTASSIUM 4.2 mmol/L (3.5-5.1); SODIUM 135 mmol/L (136-145); TCO2 21 mmol/L (25-35)
[2018-08-27] MEDS: ATIVAN IV PRN ×6 (08:30→22:54)
[2018-08-27] MEDS: LOVENOX SUBQ SCH (09:10)
[2018-08-27] MEDS: SOLU-MEDROL IV SCH ×2 (09:10→16:38)
[2018-08-27] MEDS: LIORESAL PO SCH ×3 (09:11→16:38)
[2018-08-27] MEDS: MAXIPIME 2 GM in NS 100 ML IV SCH ×2 (09:11→19:52)
[2018-08-27] MEDS: SODIUM CHLORIDE 0.9% INJ SCH (09:12)
[2018-08-27] MEDS: PROTONIX IV SCH (09:12)
--- NOTE | 2018-08-27 09:13 | PROGRESS NOTE ---
DATE: 08/27/2018 SUBJECTIVE: The patient reports that pain in the anterior chest is getting definitely much better after we made some changes to his pain medication, but he reports feeling more anxious, and he thinks that he is going through withdrawals. OBJECTIVE: Vital Signs: Temperature 97.9 degrees, heart rate 105, respiratory rate 18, blood pressure 134/69, O2 saturation 96% on room air. General: This is a chronically ill-looking, 48- year-old, male, lying in bed in no acute distress. HEENT: Head is normocephalic, atraumatic. Neck: No JVD noted. No carotid bruits. No lymphadenopathy. No thyromegaly. Cardiovascular: S1, S2 heard. No murmurs, gallops, or rubs. Regular rate and rhythm. Respiratory: Clear bilaterally to auscultation. No work of breathing or using accessory muscles. There is some mild pain to palpation in the upper sternal area on the insertion of the right clavicle. Abdomen: Soft. Nontender to palpation. Bowel sounds present. No organomegaly. Extremities: No clubbing, cyanosis, or edema. Peripheral pulse is present in both legs. Neurological: The patient looks more jittery and nervous. He reports that he may be going through withdrawals. Good conversation. Speech is coherent. Moves 4 extremities spontaneously. LABORATORY DATA: White cell count 18.38, hemoglobin 14.8, hematocrit 45.0, platelets 589. BMP reveals sodium 135, glucose 185. ASSESSMENT AND PLAN: 1. Bibasilar pneumonia/left lower lobe cavitary lesion. The patient is on vancomycin and cefepime. Dr. Power is directing antibiotics. There has been an elevation of white cell count, but I am not sure why. At this point, we will continue with the same management. We have consulted General Surgery for a cavitary lesion that the patient has that could be an abscess, but at this point, no surgery is recommended for this patient. 2. Musculoskeletal chest pain. That condition is getting better. He is receiving [place] and Toradol and as needed morphine, and he is getting better. Will continue with the same management. 3. Hypertension. Blood pressure is under control. Will continue with the same management. 4. Alcohol abuse. I think this patient is going through withdrawals. He is on Librium 50 mg by mouth every 6 hours and Ativan as needed. He was receiving Ativan, and that was helping, but at this point, I am planning to add baclofen 20 mg by mouth 3 times per day, and will go from there. 5. Deep vein thrombosis prophylaxis. The patient is on Lovenox. 6. Tobacco abuse. Patient advised to quit smoking. 7. Peripheral vascular disease. Aware. The patient is stable. 8. Polysubstance abuse. Patient advised to stop abusing drugs. 9. Disposition. At this point, considering that he may go into withdrawals, I prefer to keep him here in the [facility]. Will continue to monitor closely. Will continue with Librium and baclofen. cc: Timo Goodman MD
[2018-08-27] MEDS: NS 1,000 ML IV SCH ×2 (09:41→12:44)
[2018-08-27] MEDS: MORPHINE IV PRN ×3 (10:04→22:50)
--- NOTE | 2018-08-27 10:49 | INFECTIOUS DISEASE PROGRESS NO ---
DATE: 08/27/2018 PRESENT ILLNESS: The patient has a right chest mass, which has dramatically become almost completely gone. He also has bibasilar infiltrates and a cavitary lung mass. I think the infiltrates and the cavitary mass represent pneumonia. MEDICATIONS: This is the second day of treatment with a combination of vancomycin and cefepime. PHYSICAL EXAMINATION: Vital Signs: Temperature is 97.9 degrees, pulse 105, respirations 16, blood pressure 134/69. General: The patient tells me that generally he is feeling better. Head/eyes/ears/nose/throat: He can hear my spoken words and see near objects. He does not have any white patches on his tongue. Neck: No meningismus. Thorax: As mentioned above, the patient's swelling and tenderness are almost completely gone. Lungs: Clear to auscultation. Cardiovascular: Regular heart rate. Abdomen: Soft and not tender. LABORATORY AND X-RAY: The patient's CBC shows the white count is increased to 18,380, hemoglobin 14.8, and platelet count 589,000. Creatinine is 0.7. GFR is greater than 60. Sputum is growing normal arcenio and blood cultures are negative. ASSESSMENT AND PLAN: 1. The patient's chest mass on the right side appears to be clearing up well. I think the patient does have pneumonia, possibly due to aspiration. My plan is to continue with his current antibiotics. 2. Comorbidities: The patient is an alcoholic and he does abuse drugs as seen on the drug screen results. I think the patient's leukocytosis is due to the fact that he is receiving steroids rather than his infection getting worse. My plan now is to continue with his current antibiotics. cc: Mauro Power MD
[2018-08-28] MEDS: DUONEB (A & A) INH SCH ×7 (01:35→23:55)
[2018-08-28] MEDS: TORADOL IV SCH ×4 (02:37→20:32)
[2018-08-28] MEDS: ATIVAN IV PRN ×4 (02:37→23:00)
[2018-08-28] MEDS: SOLU-MEDROL IV SCH (02:38)
[2018-08-28] MEDS: NS 1,000 ML IV SCH ×3 (02:38→20:33)
[2018-08-28] MEDS: VANCOMYCIN 2,000 MG in NS 500 ML IV SCH ×2 (04:03→15:30)
[2018-08-28 05:46] LABS: BASO# 0.01 X1000 (0.0-0.2); HEMATOCRIT 43.3 % (42.0-52.0); HEMOGLOBIN 14.1 g/dL (14.0-18.0); IMM GRAN% 0.5 % (0.0-0.5); LYMPH# 1.03 X1000 (1.2-3.4); LYMPH% 4.8 % (20.5-51.1); MCH 30.3 PG (27-31); MCHC 32.6 g/dL (33-37); MCV 92.9 FL (81-99); MONO# 0.65 X1000 (0.11-0.59); MPV 7.8 FL (7.4-10.4); NEUT# 19.62 X1000 (1.4-6.5); NEUT% 91.7 % (42.2-75.2); PLT 787 X1000 (130-400); RBC 4.66 XMIL (4.7-6.1); WBC 21.41 X1000 (4.8-10.8)
[2018-08-28 06:06] LABS: AGAP 11; BUN 21 mg/dL (8-22); CALCIUM 9.2 mg/dL (8.8-10.2); CHLORIDE 105 mmol/L (98-107); COSMO 282; CREATININE 0.7 mg/dL (0.7-1.2); ESTIMATED GFR > 60; GLUCOSE 127 mg/dL (70-104); POTASSIUM 4.5 mmol/L (3.5-5.1); SODIUM 139 mmol/L (136-145); TCO2 23 mmol/L (25-35)
[2018-08-28] MEDS: LIBRIUM PO SCH ×4 (06:07→23:00)
[2018-08-28] MEDS: PRILOSEC PO SCH (06:08)
[2018-08-28 06:25] LABS: LYMPHS 4 % (21-51); SEGS 96 % (42-75)
--- NOTE | 2018-08-28 07:27 | INFECTIOUS DISEASE PROGRESS NO ---
DATE: 08/28/2018 PRESENT ILLNESS: The patient's chest mass has disappeared. He is being treated now for pneumonia including a cavitary lung mass. The patient may have sleep apnea. MEDICATIONS: The patient is on his 3rd day of treatment with cefepime and vancomycin. PHYSICAL EXAMINATION: Vital Signs: Temperature is 97.9 degrees, pulse 100, respirations 18, blood pressure 140/83. General: This is a lethargic middle-aged male. He is sleeping and snoring and he may have an airway problem. HEENT: No drainage was noted from the nose or the ears. Neck: No stiffness. Thorax: He has increased AP diameter of the chest. Lungs: There were bilateral rhonchi. Cardiovascular: Heart rate is regular. Abdomen : Soft and nontender. Neurologic: The patient is lethargic. He does not have a tremor. LAB AND X-RAY: CBC shows a white count of 21,410, hemoglobin 14.1, and platelet count is 787,000. Creatinine 0.7. GFR is greater than 60. The patient does not have a recent chest x-ray. ASSESSMENT AND PLAN: The patient has pneumonia. It may be due to aspiration. I plan to continue the current antibiotics. COMORBIDITIES: Patient is an alcoholic and he does abuse drugs. I think the leukocytosis is mostly secondary to the patient getting steroids at this time. I plan to continue with the current antibiotics, namely cefepime and vancomycin, for the time being. cc: Mauro Power MD MTDD
[2018-08-28] MEDS ORDERED: ATIVAN IV PRN (08:01)
[2018-08-28] MEDS: MUCOMYST 20% INH SCH ×2 (08:02→19:26)
[2018-08-28] MEDS: PROTONIX IV SCH (08:17)
[2018-08-28] MEDS: LIORESAL PO SCH ×3 (08:17→17:21)
[2018-08-28] MEDS: MAXIPIME 2 GM in NS 100 ML IV SCH ×2 (08:18→20:33)
[2018-08-28] MEDS: LOVENOX SUBQ SCH (08:18)
[2018-08-28] MEDS: NORCO-10 PO PRN (08:28)
--- NOTE | 2018-08-28 08:53 | PROGRESS NOTE ---
DATE: 08/28/2018 SUBJECTIVE: Patient reports feeling more anxious and actually he has noncoherent speech. I think he is going through alcohol withdrawal, even though he is receiving Ativan, Librium, and Baclofen. He denies any fever or chills. OBJECTIVE: Vital Signs: Temperature 97.9, heart rate 108, respiratory rate 18 , blood pressure 140/83, O2 saturation 97% on room air. General Examination: This is a chronically ill-looking and disheveled, 48-year-old, male, lying in bed in no acute distress. HEENT: Head is normocephalic and atraumatic. Mucous membranes are dry. Neck: No JVD noted. No carotid bruits. No lymphadenopathy. No thyromegaly. Cardiovascular Examination: S1 and S2 heard. No murmurs, gallops, or rubs. Regular rate and rhythm. Respiratory Examination: Some coarse breath sounds noted in both pulmonary bases. Patient is not using any accessory muscles or having work of breathing. There is mild pain to palpation in the upper sternal area on the insertion of the right clavicle. Abdomen: Soft, nontender to palpation. Bowel sounds present. No organomegaly. Extremities: No clubbing, cyanosis, or edema. Peripheral pulses present in both legs. Neurological Examination: The patient today looks more jittery, nervous. He reports that he may be going into withdrawal because he had been the same situation before. His speech is not coherent completely. He moves 4 extremities spontaneously. Laboratory Data: White cell count 21.41, hemoglobin 14.1, hematocrit 43.3, platelets 787,000. Normal BMP. ASSESSMENT AND PLAN: 1. Bibasilar pneumonia/left lower lobe cavitary lesion. The patient is on vancomycin and cefepime, day #[address] Power has increased the doses of cefepime to 2 g intravenous every 12 hours. White cell count is elevated still but I think it is because of the steroids that we have stopped. Regarding this left lower lobe cavitary lesion, it looks like an abscess. We have consulted general surgery but they think no surgery is recommended at this point. For now, we will continue with medical management only. 2. Alcohol withdrawal. The patient is a very heavy drinker. He drinks between 15 and 18 beers daily. At this point, considering that he has been, during the last couple of days, on Librium 50 mg by mouth every 6 hours plus baclofen 20 mg by mouth 3 times per day, and he continues to have signs of alcohol withdrawal, I think we will send him to the intensive care unit to start an Ativan drip. We will continue to monitor this patient closely. 3. Deep vein thrombosis prophylaxis. Patient is on Lovenox. 4. Tobacco abuse. Patient strongly advised to stop smoking, even though patient was not completely alert. 5. Peripheral vascular disease. Aware. The patient is stable. 6. Polysubstance abuse. The patient used to be a user of marijuana. 7. Disposition. At this point, considering that his alcohol withdrawal is getting worse, we will send him to the intensive care unit to start an Ativan drip. cc: Timo Goodman MD MTDD
[2018-08-28] MEDS: MORPHINE IV PRN ×3 (09:09→23:00)
[2018-08-28] MEDS: ATIVAN 20 MG in NS 190 ML IV SCH ×2 (10:01→19:04)
[2018-08-28] MEDS: NICODERM PATCH TD SCH (13:33)
[2018-08-29] MEDS: MORPHINE IV PRN ×4 (02:56→23:45)
[2018-08-29] MEDS: ATARAX PO PRN (02:56)
[2018-08-29] MEDS: TORADOL IV SCH (02:56)
[2018-08-29] MEDS: VANCOMYCIN 2,000 MG in NS 500 ML IV SCH ×3 (04:50→16:40)
[2018-08-29] MEDS: LIBRIUM PO SCH ×4 (04:50→23:56)
[2018-08-29] MEDS: NS 1,000 ML IV SCH ×2 (04:50→07:03)
[2018-08-29] MEDS: ATIVAN IV PRN ×4 (05:00→23:45)
[2018-08-29] MEDS ORDERED: PHENOBARBITAL IV ONE ×2 (05:12→05:50)
[2018-08-29] MEDS: DUONEB (A & A) INH SCH ×5 (05:42→19:45)
[2018-08-29 06:10] LABS: BASO# 0.02 X1000 (0.0-0.2); BASO% 0.1 % (0.0-0.8); EOS# 0.07 X1000 (0.0-0.7); EOS% 0.5 % (0.0-10.0); HEMOGLOBIN 13.7 g/dL (14.0-18.0); IMM GRAN# 0.05 X1000 (0.0-0.04); IMM GRAN% 0.3 % (0.0-0.5); LYMPH# 3.34 X1000 (1.2-3.4); LYMPH% 22.5 % (20.5-51.1); MCH 30.1 PG (27-31); MCHC 32.6 g/dL (33-37); MCV 92.3 FL (81-99); MONO# 1.28 X1000 (0.11-0.59); MONO% 8.6 % (1.7-9.3); MPV 7.7 FL (7.4-10.4); NEUT# 10.11 X1000 (1.4-6.5); PLT 752 X1000 (130-400); RBC 4.55 XMIL (4.7-6.1); RDW 13.1 % (11.5-14.5); WBC 14.87 X1000 (4.8-10.8)
[2018-08-29 06:39] LABS: AGAP 12; BUN 23 mg/dL (8-22); CALCIUM 8.6 mg/dL (8.8-10.2); CHLORIDE 107 mmol/L (98-107); COSMO 282; CREATININE 0.8 mg/dL (0.7-1.2); ESTIMATED GFR > 60; GLUCOSE 85 mg/dL (70-104); POTASSIUM 4.1 mmol/L (3.5-5.1); SODIUM 140 mmol/L (136-145); TCO2 21 mmol/L (25-35)
[2018-08-29] MEDS ORDERED: HALDOL IV ONE (06:39)
[2018-08-29 06:41] LABS: BANDS 2 % (0-1); EOS 4 % (1-10); LYMPHS 20 % (21-51); MONO 6 % (1-9); SEGS 66 % (42-75)
[2018-08-29] MEDS ORDERED: HALDOL ONE (06:46)
[2018-08-29] MEDS: PRILOSEC PO SCH (07:04)
[2018-08-29] MEDS: ATIVAN 20 MG in NS 190 ML IV SCH ×3 (08:14→19:20)
[2018-08-29] MEDS: MUCOMYST 20% INH SCH ×2 (08:36→19:45)
--- NOTE | 2018-08-29 08:36 | INFECTIOUS DISEASE PROGRESS NO ---
DATE: 08/29/2018 PRESENT ILLNESS: The patient has bibasilar infiltrates and possibly a cavitary lung mass. I think the patient has aspiration pneumonia causing the CT scan and chest x-ray findings. It appears the patient went into delirium tremens yesterday and was moved to the ICU. It has required putting the patient's arms and legs tied to the bed. MEDICATIONS: This is the third day of treatment with a combination of vancomycin and cefepime. PHYSICAL EXAMINATION: Vital Signs: Temperature is 99 degrees, pulse 101, respirations 18, blood pressure 154/101. General: This is an sedated, obese male. He is in no acute distress at this time. Head/eyes/ears/nose/throat: No drainage was noted from the nose or ears. Neck: No stiffness. Lungs: There were scattered rhonchi bilaterally. Cardiovascular: Heart rate is regular. Thorax: The patient's mass on the chest wall has completely cleared. Neurologic: Patient is sedated. There is no tremor. LABORATORY AND X-RAY: There is no new radiographic study today. The patient's CBC shows a white count of 14,870, hemoglobin 13.7, and platelet count 752,000. Creatinine is 0.8. GFR is greater than 60. Sputum grew normal arcenio and blood cultures are negative. ASSESSMENT AND PLAN: 1. I think the patient has aspiration pneumonia. My plan is to continue with his current antibiotics, namely vancomycin and cefepime. 2. Comorbidities: Patient is an alcoholic and went into delirium tremens. He also abuses drugs. The patient's leukocytosis could be due to his infection. Also, the patient has been receiving steroids. cc: Mauro Power MD
--- NOTE | 2018-08-29 08:45 | PROGRESS NOTE ---
DATE: 08/29/2018 SUBJECTIVE: The patient is very agitated this morning. He is threatening the nurses and has been given multiple agents to calm his nerves. OBJECTIVE: Vital Signs: Temperature 98.6 degrees, blood pressure 154/101, heart rate 99, respirations 14, O2 saturation is 95% on 3 L nasal cannula, intake 3.2 L, output 3.3 L. General: This is a chronically ill-appearing, middle-aged male lying in bed in no acute distress. Head: Normocephalic, atraumatic. Heart: S1, S2 normal. Tachycardic. Lungs: Equal air entry bilaterally. Diminished breath sounds at the bases. Abdomen: Positive bowel sounds. Soft, nontender, nondistended. Extremities: No edema. No cyanosis. Neurologic: The patient is awake, but confused and very combative. He is able to move all 4 extremities. Labs: White blood cell count 14, hemoglobin 13, hematocrit 42, platelets 752, 000. Sodium 140, potassium 4.1, chloride 107, CO2 21, BUN 23, creatinine 0.8, glucose 85. ASSESSMENT AND PLAN: 1. Bilateral lobe pneumonia with a cavitary lung lesion. Continue with antibiotic therapy as directed by Dr. Power. 2. Alcohol withdrawal/DTs. Continue on the ativan drip and will add prn geodon for agitation. 3. Leukocytosis. Improved. Continue with intravenous antibiotic therapy. 4. Thrombocytosis. This is likely reactive. We will continue to monitor this closely. 5. Tobacco dependence. The patient has been counseled about smoking cessation. 6. Peripheral vascular disease. Aware. 7. Deep vein thrombosis prophylaxis. Continue on Lovenox. cc: Summer Pepper MD [facility]
[2018-08-29] MEDS: LIORESAL PO SCH ×3 (09:14→17:09)
[2018-08-29] MEDS: MAXIPIME 2 GM in NS 100 ML IV SCH ×2 (09:14→19:43)
[2018-08-29] MEDS: LOVENOX SUBQ SCH (09:14)
[2018-08-29] MEDS: PROTONIX IV SCH (09:14)
[2018-08-29] MEDS: NICODERM PATCH TD SCH (09:14)
[2018-08-29] MEDS: COLACE PO SCH ×2 (09:15→22:02)
[2018-08-29] MEDS: MIRALAX PO SCH ×2 (09:17→22:02)
[2018-08-29] MEDS: GEODON IM PRN ×2 (13:49→19:42)
--- NOTE | 2018-08-29 17:08 | CONSULTATION ---
DATE OF CONSULTATION: 08/29/2018 REASON FOR CONSULTATION: Altered mental status, DTs. HISTORY OF PRESENT ILLNESS: This is a 48-year-old male who was admitted on 08/24/2018. He presented complaining of continued chest pain and also was reporting shortness of breath. He apparently had been hospitalized recently in [place] for some sort of chest injury after falling. He reported coughing up blood. White count was elevated, though he was not febrile. He ultimately was diagnosed with a pneumonia, and there was also a possible cavitary lung lesion. He did reasonably well the first couple of days, but I believe on 08/26/2018, he began to feel more anxious and jittery. This progressed, and he was ultimately moved to the ICU yesterday and started on lorazepam drip for DTs. He has been quite agitated and violently trying to get his restraints off. He has had visual hallucinations, and he has been delusional. He is currently on a lorazepam drip 2 mg per hour, baclofen scheduled, Librium scheduled, p.r.n. lorazepam, p.r.n. Geodon, and hydroxyzine. The patient is an alcoholic. He drinks 15 to 18 beers a day. Urine toxicology was positive for opiates, benzodiazepines and cannabinoids. I believe he has a prescription for the opiate, and I am uncertain of whether or not he received a dose of benzodiazepine here prior to this lab. There have been no seizures witnessed. PAST MEDICAL HISTORY: Hypertension, alcoholism, reported syncopal spells recently. SOCIAL HISTORY: Current smoker. Drinks 15 to 18 beers daily. Smokes marijuana. He is unemployed. FAMILY HISTORY: Positive for coronary disease. ALLERGIES: Listed to penicillin. CURRENT MEDICATIONS: Reviewed in the chart and as per above. REVIEW OF SYSTEMS: Could not be obtained due to the patient's mental status. PHYSICAL EXAMINATION: Vital signs: He has been afebrile, blood pressure recently 105 to 150 systolic over 80s to 90s diastolic. Pulse 80s to 90s, respirations 18, saturation 98% on 2 L nasal cannula. Mr. Villatoro is supine in bed with eyes closed, appears to be resting comfortably. He was given Geodon recently. He continues on lorazepam drip. He is in no acute distress. He arouses to persistent moderate voice and noxious tactile stimulation to the left shoulder. He is groggy and drifts back to sleep initially but eventually is able to maintain his level of alertness better. He is oriented to self. Does not know location or timing. He does enthusiastically say, "Trump" when asked who the workforce development vice president is. He gives thumbs up with both hands on command. He shows the middle finger on each hand when asked to show two fingers. He mumbles incoherently. Pupils are equal and miotic with reactivity to bright light in both eyes. Gaze is conjugate and forward. There is horizontal eye movement with passive head turning. Blinks to threat. Face appears symmetrically equal with grimace. Tone is symmetric in the limbs. He is at least antigravity in the upper extremities and in the lower extremities. I see him also spontaneously moving all extremities, and he has strength on all extremities due to his significant agitation. Reflexes are absent at the ankle, 1+ at the knees, trace at the wrist. No clonus. Plantar response is downgoing. He responds to noxious stimuli equal in all extremities. DIAGNOSTIC DATA: CT angiogram of the aorta with runoff showing no evidence of abdominal aortic aneurysm. No significant aortoiliac or lower extremity atherosclerotic disease. Subsegmental atelectasis in both lung bases. Trace left effusion. Infiltrate in left lung base has worsened. Echocardiogram showed no pericardial effusion or obvious intracardiac mass or thrombus with an EF of 70%. White count trending down today at 14.8. Sodium normal today, 133 on admission. BUN is 23, creatinine 0.8. Blood sugar is 85 to 185. Calcium 8.6. AST and ALT normal. Alkaline phosphatase 207. TSH is 3.4. Toxicology presumptive positive for cannabinoids , benzodiazepines and opiates. ASSESSMENT AND PLAN: Global encephalopathy. Apparent hyperactive delirium. Currently the patient is more sedated and calm at the time of my encounter. Given his history of significant alcohol usage, I suspect alcohol withdrawal and would continue treating as such. If he does not begin to show improvement over the next couple of days or if other concerning features arise, then I would consider noncontrasted head CT as he has not had any cranial imaging. Thank you for the consultation. cc: MD TONYA Avelar
--- NOTE | 2018-08-29 18:57 | Extremity Venous Study ---
PROCEDURE NAME: Venous U/S Bilateral Legs - 08/25/2018 INDICATION: The patient has questionable septic pulmonary emboli. FINDINGS: Bilateral lower extremity venous images accomplished. The common femoral, superficial femoral, deep femoral, popliteal, posterior tibial, peroneal, and greater saphenous veins are imaged. Doppler is used to evaluate the veins for spontaneity, phasicity, respiratory excursion, distal augmentation. All veins are compressible. No intraluminal clot is seen. INTERPRETATION: No evidence of deep or superficial venous thrombosis in either lower extremity in the veins identified. cc: MD Mallory Sumner CRNP
--- NOTE | 2018-08-29 19:17 | VASCULAR LAB ---
DATE: 08/25/2018 PROCEDURE: Lower extremity arterial study at rest. REFERRING PHYSICIAN: Timo Goodman MD INTERPRETING PHYSICIAN: Lenny Ugalde MD TECH: [place] INDICATION: The patient has a small sore on the left second digit and bilateral great toe pain. Bilateral lower extremity arterial study is accomplished. FINDINGS: The right AB index 1.3. Right great toe pressure 122. Right toe brachial index 0.3. The left AB index 1.2. The left great toe pressure 130. Left toe brachial index 0.88. PVRs are normal. INTERPRETATION: Normal resting lower extremity arterial study. cc: MD Mallory Sumner CRNP
[2018-08-29] MEDS: STERILE WATER INJ. INJ PRN (19:42)
[2018-08-29 22:03] LABS: URINE SOURCE CATH
[2018-08-29 22:30] LABS: BILIRUBIN URINE NEGATIVE (NEGATIVE); BLOOD URINE NEGATIVE (NEGATIVE); COLOR STRAW; GLUCOSE URINE NEGATIVE (NEGATIVE); KETONE URINE NEGATIVE (NEGATIVE); LEUKOCYTES URINE NEGATIVE (NEGATIVE); NITRITE URINE NEGATIVE (NEGATIVE); PH URINE 5.5; PROTEIN URINE NEGATIVE (NEGATIVE); TURBIDITY URINE CLEAR (CLEAR); UR EPITHELIAL CELLS <10 /HPF (<10); URINE BACTERIA NEGATIVE /HPF; URINE RBC <10 /HPF (<10); URINE WBC <10 /HPF (<10); UROBILINOGEN URINE NORMAL (NORMAL)
[2018-08-30] MEDS: GEODON IM PRN ×3 (01:55→23:26)
[2018-08-30] MEDS: ATIVAN IV PRN ×2 (01:55→04:01)
[2018-08-30] MEDS: MORPHINE IV PRN ×5 (04:01→23:26)
[2018-08-30] MEDS: VANCOMYCIN 2,000 MG in NS 500 ML IV SCH ×2 (04:02→17:00)
[2018-08-30] MEDS: DUONEB (A & A) INH SCH ×6 (05:47→23:00)
[2018-08-30 05:58] LABS: BASO# 0.02 X1000 (0.0-0.2); BASO% 0.2 % (0.0-0.8); EOS# 0.19 X1000 (0.0-0.7); EOS% 1.7 % (0.0-10.0); HEMATOCRIT 44.5 % (42.0-52.0); HEMOGLOBIN 14.5 g/dL (14.0-18.0); IMM GRAN# 0.04 X1000 (0.0-0.04); IMM GRAN% 0.4 % (0.0-0.5); LYMPH# 2.13 X1000 (1.2-3.4); LYMPH% 18.9 % (20.5-51.1); MCH 30.3 PG (27-31); MCHC 32.6 g/dL (33-37); MCV 93.1 FL (81-99); MONO# 1.23 X1000 (0.11-0.59); MONO% 10.9 % (1.7-9.3); MPV 7.8 FL (7.4-10.4); NEUT# 7.64 X1000 (1.4-6.5); NEUT% 67.9 % (42.2-75.2); PLT 753 X1000 (130-400); RBC 4.78 XMIL (4.7-6.1); RDW 13.3 % (11.5-14.5); WBC 11.25 X1000 (4.8-10.8)
[2018-08-30] MEDS: LIBRIUM PO SCH ×4 (06:03→23:25)
[2018-08-30] MEDS: ATIVAN 20 MG in NS 190 ML IV SCH ×2 (06:24→17:31)
[2018-08-30 06:31] LABS: AGAP 11; ALB/GLOB RATIO 1.1; ALBUMIN 3.1 g/dL (3.5-5.0); ALKALINE PHOSPHATASE 135 U/L (32-122); BUN 11 mg/dL (8-22); CALCIUM 8.2 mg/dL (8.8-10.2); CHLORIDE 104 mmol/L (98-107); COSMO 282; CREATININE 0.5 mg/dL (0.7-1.2); ESTIMATED GFR > 60; GLUCOSE 85 mg/dL (70-104); GOT 11 U/L (10-34); GPT 33 U/L (10-44); POTASSIUM 3.9 mmol/L (3.5-5.1); SODIUM 142 mmol/L (136-145); TCO2 27 mmol/L (25-35); TOTAL BILIRUBIN 0.57 mg/dL (0.20-1.00)
[2018-08-30] MEDS: MUCOMYST 20% INH SCH ×2 (08:40→19:10)
[2018-08-30] MEDS: MAXIPIME 2 GM in NS 100 ML IV SCH ×3 (09:07→19:49)
[2018-08-30] MEDS: LOVENOX SUBQ SCH (09:08)
[2018-08-30] MEDS: PROTONIX IV SCH (09:08)
[2018-08-30] MEDS: NICODERM PATCH TD SCH (09:08)
--- NOTE | 2018-08-30 10:13 | INFECTIOUS DISEASE PROGRESS NO ---
DATE: 08/30/2018 PRESENT ILLNESS: Mr. Villatoro has a probable septic emboli to the left lower lobe and is being treated for possible aspiration pneumonia. He is also having delirium tremors and is being sedated and restrained due to belligerence. MEDICATIONS: Today is day 5 of cefepime 2 g IV every 12 hours and day 6 of IV vancomycin per Pharmacy dosing. PHYSICAL EXAMINATION: Vital Signs: Temperature is 98.5 degrees, pulse rate 107 , respiratory rate 15, blood pressure 141/89, O2 saturation is 94% on 2 L nasal cannula. General: This is a confused, critically ill-appearing, middle-aged gentleman. He is lying in the bed, on an Ativan drip with soft wrist and ankle restraints in place. HEENT: Atraumatic, normocephalic. Oral mucous membranes are pink and dry. Conjunctiva are pink. Neck: Supple. Trachea is midline. Cardiovascular: Heart rate and rhythm are regular and tachycardic, sinus tachycardia on the monitor. Pedal and radial pulses are palpable bilaterally. Respiratory: Lung sounds are clear in the upper lobes, diminished in the bases, with a mild wheeze noted. Abdomen: Soft , round, and nontender. Bowel sounds are active. Neurologic: He is lethargic, with slurred speech due to sedation. He is confused and is asking to take the restraints off. Fighting against restraints, with strong extremities. DIAGNOSTIC STUDIES: Today his white count is 11.25, hemoglobin 14.5, platelet count 753,000. Creatinine is 0.5, estimated GFR is greater than 60. Total bilirubin is 0.57, AST 11, ALT 33, alkaline phosphatase 135. Blood and sputum cultures have no growth at this point. No imaging reports today. ASSESSMENT AND PLAN: Mr. Villatoro is being treated for aspiration pneumonia with a probable septic emboli. His leukocytosis is improving, so we will continue vancomycin and cefepime as ordered. He is continuing to go through delirium tremors, and remains in the ICU due to belligerence and restraints with an Ativan drip. These plans have been discussed with and recommended by Dr. Power. Echocardiogram ordered. Comorbidities for Mr. Villatoro include cigarette smoking and alcohol abuse. Dictated by ELENA Zamudio for Mauro Power MD This chart was documented by, ELENA Zamudio and accurately reflects the services performed, treatment plan and medical decisions as attested by the providers signature Mauro Power MD. cc: Mauro Power MD [facility]
[2018-08-30] MEDS: COLACE PO SCH ×2 (10:24→20:04)
[2018-08-30] MEDS: MIRALAX PO SCH ×2 (10:25→20:04)
[2018-08-30] MEDS: LIORESAL PO SCH ×3 (10:25→17:41)
[2018-08-30] MEDS: STERILE WATER INJ. INJ PRN ×2 (11:20→23:25)
--- NOTE | 2018-08-30 13:13 | PROGRESS NOTE ---
DATE: 08/30/2018 SUBJECTIVE: Mr. Villatoro was admitted with likely ethanol withdrawal. Dr. Sidhu saw him yesterday. He had evidence of global encephalopathy with hyperactive delirium. He has been afebrile. Drug screen was positive for opiates, benzodiazepines, cannabis. Medicine record shows lorazepam 2 mg IV, 4 doses over a period of 6 hours overnight, but none in the last 8 hours. He had morphine 4 mg, 4 doses in the last 24 hours. He has had ziprasidone 10 mg, 4 doses in the last 24 hours. OBJECTIVE: At the time of my rounds, he appears to be sleeping peacefully. With name calling, he was awake, alert, briefly attentive. He followed simple commands consistently. Speech is a little bit dysarthric, but easily understood and otherwise appropriate. Neck is supple. I do not find any definite focal deficit on limited bedside exam. ASSESSMENT AND PLAN: I do not have anything to add to Dr. Sidhu's impression and suggestions. Would continue current management. Thanks for asking Neurology to see Mr. Villatoro. cc: Ann Marie Hidalgo III, MD
--- NOTE | 2018-08-30 19:18 | PROGRESS NOTE ---
DATE: 08/30/2018 SUBJECTIVE: The patient is resting comfortably. He received many medications for agitation overnight. OBJECTIVE: Vital Signs: Temperature 98.6, blood pressure 134/88, heart rate 87 , respirations 14, O2 saturation 94% on 2 L nasal cannula. General: This is a middle-aged male, lying in bed, currently sedated in no acute distress. Heart: S1, S2 normal. Regular rate and rhythm. Lungs: Clear to auscultation bilaterally. Abdomen: Positive bowel sounds. Soft, nontender, nondistended. Extremities: No edema, no cyanosis. Neurologic: The patient is currently sedated. LABS: White blood cell count 11, hemoglobin 14, hematocrit 44, platelets 753. Sodium 142, potassium 3.9, chloride 104, CO2 of 27, BUN 11, creatinine 0.5, glucose 85. ASSESSMENT AND PLAN: 1. Bilateral lobe pneumonia with a cavitary lung lesion. Continue with antibiotics and bronchodilator therapy. 2. Alcohol withdrawal with delirium tremens. The patient is currently on an Ativan drip. We will continue with the Justyna godoy.rhenry for agitation. 3. Leukocytosis. Improved. 4. Alcohol abuse. Aware. 5. Constipation. Continue with Colace and MiraLAX. 6. Gastrointestinal prophylaxis. Continue on Protonix. 7. Deep vein thrombosis prophylaxis. Continue on Lovenox. cc: Summer Pepper MD [facility]
[2018-08-30] MEDS: NORCO-10 PO PRN (20:04)
[2018-08-31] MEDS: ATIVAN IV PRN ×2 (00:11→20:51)
[2018-08-31] MEDS: DUONEB (A & A) INH SCH ×6 (03:00→23:35)
[2018-08-31] MEDS: LIBRIUM PO SCH ×4 (04:15→18:00)
[2018-08-31] MEDS: MORPHINE IV PRN ×3 (04:15→20:52)
[2018-08-31] MEDS: VANCOMYCIN 2,000 MG in NS 500 ML IV SCH ×2 (04:16→16:00)
[2018-08-31 04:47] LABS: BASO# 0.02 X1000 (0.0-0.2); BASO% 0.2 % (0.0-0.8); EOS# 0.17 X1000 (0.0-0.7); EOS% 1.4 % (0.0-10.0); HEMATOCRIT 47.5 % (42.0-52.0); HEMOGLOBIN 15.6 g/dL (14.0-18.0); IMM GRAN# 0.03 X1000 (0.0-0.04); IMM GRAN% 0.3 % (0.0-0.5); LYMPH# 2.86 X1000 (1.2-3.4); LYMPH% 23.9 % (20.5-51.1); MCH 30.4 PG (27-31); MCHC 32.8 g/dL (33-37); MCV 92.4 FL (81-99); MONO% 8.4 % (1.7-9.3); MPV 7.5 FL (7.4-10.4); NEUT# 7.89 X1000 (1.4-6.5); NEUT% 65.8 % (42.2-75.2); PLT 740 X1000 (130-400); RBC 5.14 XMIL (4.7-6.1); RDW 13.1 % (11.5-14.5); WBC 11.97 X1000 (4.8-10.8)
[2018-08-31] MEDS: ATIVAN 20 MG in NS 190 ML IV SCH (05:11)
[2018-08-31 05:14] LABS: AGAP 7; ALB/GLOB RATIO 0.9; ALBUMIN 3.1 g/dL (3.5-5.0); ALKALINE PHOSPHATASE 142 U/L (32-122); BUN 16 mg/dL (8-22); CALCIUM 9.7 mg/dL (8.8-10.2); CHLORIDE 99 mmol/L (98-107); COSMO 282; CREATININE 0.8 mg/dL (0.7-1.2); ESTIMATED GFR > 60; GLUCOSE 92 mg/dL (70-104); GOT 12 U/L (10-34); GPT 28 U/L (10-44); POTASSIUM 4.1 mmol/L (3.5-5.1); SODIUM 141 mmol/L (136-145); TCO2 35 mmol/L (25-35); TOTAL BILIRUBIN 0.86 mg/dL (0.20-1.00); TOTAL PROTEIN 6.6 g/dL (6.3-8.3)
[2018-08-31 06:17] LABS: INR 0.96; PROTIME 13.5 Seconds (11.0-16.0)
[2018-08-31] MEDS: NORCO-10 PO PRN ×3 (06:36→22:32)
--- NOTE | 2018-08-31 06:40 | Diag Imaging Result Doc PS360 ---
CHEST-1 VIEW - 08/31/2018 INDICATION: SOB COMPARISON: 08/25/2018 FINDINGS: There has been improvement in the focal infiltrate in the lateral left lung base. There is worsening slight hazy atelectasis or infiltrate at the right lung base. Lung volumes are low. Heart size is grossly normal. IMPRESSION: Shifting opacities in the lung bases. Overall little change from prior. Electronically signed by Ronni Haney 08/31/2018 6:37 AM
[2018-08-31] MEDS: MUCOMYST 20% INH SCH ×2 (07:46→19:34)
[2018-08-31] MEDS: PROTONIX IV SCH (08:09)
[2018-08-31] MEDS: MAXIPIME 2 GM in NS 100 ML IV SCH ×2 (08:09→20:52)
[2018-08-31] MEDS: LOVENOX SUBQ SCH (08:10)
[2018-08-31] MEDS: LIORESAL PO SCH ×3 (08:10→22:31)
[2018-08-31] MEDS: NICODERM PATCH TD SCH (09:00)
[2018-08-31] MEDS ORDERED: NS 250 ML ONE (09:09)
--- NOTE | 2018-08-31 09:49 | PROGRESS NOTE ---
DATE: 08/31/2018 SUBJECTIVE: The patient is currently sedated. The patient is still having periods of confusion and extreme agitation. The patient remains on an Ativan drip. OBJECTIVE: Vital Signs: Temperature 98.6 degrees, blood pressure 131/87, heart rate 100, respirations 18, O2 saturation is 95% on 2 L nasal cannula. General: This is a chronically ill- appearing male lying in bed, in no acute distress. Heart: S1, S2 normal. Tachycardic. Lungs: Equal air entry bilaterally. No wheezing. No rales. Abdomen: Positive bowel sounds. Soft, nontender, nondistended. Extremities: No edema. No cyanosis. Neurologic: The patient is currently sedated. Labs: White blood cell count 11, hemoglobin 15, hematocrit 47, platelets 740,000. Sodium 141, potassium 4.1, chloride 99, CO2 35, BUN 16, creatinine 0.8, glucose 92. AST 12, ALT 28, alkaline phosphatase 142. ASSESSMENT AND PLAN: 1. Alcohol withdrawal with delirium tremens. Continue on Ativan drip and as needed Geodon. 2. Bilateral lobe pneumonia with a cavitary lung lesion. Continue with antibiotic therapy as directed by Dr. Power. 3. Hypertension. Stable. 4. Constipation. We will add lactulose to the patient's laxative regimen. 5. Gastrointestinal prophylaxis. Continue on Protonix. 6. Deep vein thrombosis prophylaxis. Continue on Lovenox. cc: Summer Pepper MD
[2018-08-31] MEDS: COLACE PO SCH ×2 (10:37→22:31)
[2018-08-31] MEDS: MIRALAX PO SCH ×2 (10:37→22:32)
[2018-08-31] MEDS: LACTULOSE PO SCH ×2 (11:48→22:31)
--- NOTE | 2018-08-31 11:52 | INFECTIOUS DISEASE PROGRESS NO ---
DATE: 08/31/2018 PRESENT ILLNESS: The patient has septic emboli to his left lower lung and may have aspiration pneumonia as well. He is going through delirium tremens now and is sedated. MEDICATIONS: This is day 6 of cefepime and day 7 of vancomycin. PHYSICAL EXAMINATION: Vital Signs: Temperature is 98.5 degrees, pulse 107, respirations 20, blood pressure 136/88. General: This is an ill-appearing middle-aged male. Currently he is sedated. Head, eyes, ears, nose, and throat: No drainage was noted from the nose or ears. Neck: I did not check because the patient is sedated for his delirium tremens. Lungs: Clear to auscultation. Cardiovascular: Heart rate is regular. Abdomen: Soft. Neurologic: The patient is sedated. He did not open his eyes or make any movement while I was examining him. Integument: No rash noted. DIAGNOSTIC STUDIES: Chest x-ray shows improvement in the left lung infiltrate and worsening in the right lung infiltrate versus atelectasis. Urinalysis was negative for white cells and bacteria. Alkaline phosphatase is 142, creatinine 0.8, GFR is greater than 60. CBC shows a white count of 11,970, hemoglobin is 15.6, and platelet count is 740,000. ASSESSMENT AND PLAN: Patient has: 1. Aspiration pneumonia. 2. Possible septic emboli. My plan is to continue the current antibiotics, namely vancomycin and cefepime. COMORBIDITIES: Include: 1. Cigarette smoking. 2. Alcohol abuse. cc: Mauro Power MD
--- NOTE | 2018-08-31 12:39 | PROGRESS NOTE ---
DATE: 08/31/2018 SUBJECTIVE: No new neurogic event. OBJECTIVE: Mr. Villatoro is awake, alert, attentive at this time. He answered simple questions appropriately. He misspoke when trying to name the current month but self corrected that. He provided the correct day of the month and correct location. He discussed some recent news. I do not find any focal neurologic deficit on limited bedside exam. I do not have any new thoughts or new suggestions from Neurology standpoint today. Discussed briefly with family at bedside. Thanks for asking us to see Mr. Villatoro. cc: MD TONYA Jones III
[2018-08-31] MEDS: GEODON IM PRN ×2 (15:46→22:32)
[2018-08-31] MEDS: STERILE WATER INJ. INJ PRN ×2 (15:46→22:32)
[2018-09-01] MEDS: ATIVAN 20 MG in NS 190 ML IV SCH ×2 (00:12→19:16)
[2018-09-01] MEDS: LIBRIUM PO SCH ×4 (00:12→17:42)
[2018-09-01] MEDS: VANCOMYCIN 2,000 MG in NS 500 ML IV SCH ×2 (03:25→15:28)
[2018-09-01] MEDS: GEODON IM PRN ×3 (03:25→15:32)
[2018-09-01] MEDS: NORCO-10 PO PRN (03:26)
[2018-09-01] MEDS: STERILE WATER INJ. INJ PRN (03:26)
[2018-09-01] MEDS: DUONEB (A & A) INH SCH ×5 (03:40→20:10)
[2018-09-01 06:24] LABS: BASO# 0.01 X1000 (0.0-0.2); BASO% 0.1 % (0.0-0.8); EOS# 0.28 X1000 (0.0-0.7); EOS% 2.6 % (0.0-10.0); HEMATOCRIT 48.5 % (42.0-52.0); HEMOGLOBIN 15.9 g/dL (14.0-18.0); IMM GRAN# 0.03 X1000 (0.0-0.04); IMM GRAN% 0.3 % (0.0-0.5); LYMPH# 1.61 X1000 (1.2-3.4); LYMPH% 14.9 % (20.5-51.1); MCH 30.3 PG (27-31); MCHC 32.8 g/dL (33-37); MCV 92.4 FL (81-99); MONO# 0.99 X1000 (0.11-0.59); MONO% 9.2 % (1.7-9.3); MPV 7.7 FL (7.4-10.4); NEUT# 7.86 X1000 (1.4-6.5); NEUT% 72.9 % (42.2-75.2); PLT 550 X1000 (130-400); RBC 5.25 XMIL (4.7-6.1); RDW 12.9 % (11.5-14.5); WBC 10.78 X1000 (4.8-10.8)
[2018-09-01] MEDS: ATIVAN IV PRN ×2 (06:27→09:16)
[2018-09-01] MEDS: MORPHINE IV PRN (06:27)
[2018-09-01 06:42] LABS: AGAP 12; ALB/GLOB RATIO 0.9; ALKALINE PHOSPHATASE 135 U/L (32-122); BUN 13 mg/dL (8-22); CALCIUM 8.9 mg/dL (8.8-10.2); CHLORIDE 100 mmol/L (98-107); COSMO 279; CREATININE 0.6 mg/dL (0.7-1.2); ESTIMATED GFR > 60; GLUCOSE 94 mg/dL (70-104); GOT 12 U/L (10-34); GPT 26 U/L (10-44); POTASSIUM 3.9 mmol/L (3.5-5.1); SODIUM 140 mmol/L (136-145); TCO2 28 mmol/L (25-35); TOTAL BILIRUBIN 0.61 mg/dL (0.20-1.00); TOTAL PROTEIN 6.5 g/dL (6.3-8.3)
[2018-09-01] MEDS: CLINIMIX E 4.25%-5% SOLUTION 1,000 ML IV SCH ×2 (07:30→20:24)
[2018-09-01] MEDS: MUCOMYST 20% INH SCH ×2 (07:44→20:10)
--- NOTE | 2018-09-01 09:12 | Diag Imaging Result Doc PS360 ---
EXAM: ABDOMEN FLAT/UPRIGHT 09/01/2018 HISTORY: constipation TECHNIQUE: Flat and upright abdomen portable at 0831 COMMENT: There is stool throughout the colon. The stomach and small bowel are not distended. There is no evidence organomegaly or mass. There is bibasilar atelectasis. IMPRESSION: Constipation. Electronically signed by Gui Winslow 09/01/2018 9:09 AM
[2018-09-01] MEDS: MAXIPIME 2 GM in NS 100 ML IV SCH (09:15)
[2018-09-01] MEDS: COLACE PO SCH ×2 (09:16→20:25)
[2018-09-01] MEDS: LACTULOSE PO SCH ×2 (09:16→20:25)
[2018-09-01] MEDS: NICODERM PATCH TD SCH (09:16)
[2018-09-01] MEDS: LIORESAL PO SCH ×3 (09:16→20:25)
[2018-09-01] MEDS: LOVENOX SUBQ SCH (09:16)
[2018-09-01] MEDS: PROTONIX IV SCH (09:16)
[2018-09-01] MEDS: MIRALAX PO SCH ×2 (09:16→20:26)
--- NOTE | 2018-09-01 10:36 | PROGRESS NOTE ---
DATE: 09/01/2018 SUBJECTIVE: The patient is resting comfortably in bed. He is currently sedated. OBJECTIVE: Vital Signs: Temperature 98.2 degrees, blood pressure 110/83, heart rate 84, respirations 18, O2 saturation 97% on 2 L nasal cannula. General: This is a middle-aged male, lying in bed in no acute distress. Heart: S1, S2 normal. Regular rate and rhythm. Lungs: Equal air entry bilaterally. No crackles. No rales. Abdomen: Positive bowel sounds. Soft, nontender, nondistended. Extremities: No edema, no cyanosis. Neurologic: The patient is currently sedated. LABORATORY DATA: White blood cell count 10, hemoglobin 15, hematocrit 48, platelets 550,000. Sodium 140, potassium 3.9, chloride 100, CO2 28, BUN 13, creatinine 0.6, glucose 94. IMAGING: Abdomen x-ray shows constipation. ASSESSMENT AND PLAN: 1. Alcohol withdrawal with delirium tremens. Continue on Ativan drip and Geodon. 2. Bilateral lobe pneumonia with cavitary lung lesion. Continue with the current antibiotic regimen. 3. Hypertension. Stable. 4. Constipation. Continue with scheduled laxative therapy. 5. Gastrointestinal prophylaxis. Continue on Protonix. 6. Deep vein thrombosis prophylaxis. Continue on Lovenox. cc: Summer Pepper MD
--- NOTE | 2018-09-01 14:14 | PULMONOLOGY PROGRESS NOTE ---
DATE: 09/01/2018 SUBJECTIVE: The patient is sleeping, but arousable. He appears confused. He has no increased work of breathing. OBJECTIVE: Vital Signs: Patient has been afebrile for the last 24 hours. Blood pressure 115/66, heart rate 87, respiratory rate 13, oxygen saturation 96% on 2 L nasal cannula. HEENT: Pupils are equal and reactive. Oropharynx difficult to evaluate with patient refusing to open his mouth. Chest: Reveals occasional rhonchi bilaterally. Cardiac exam: S1, S2. Abdomen: Soft with positive bowel sounds. Extremities: Without edema. LABORATORIES: White blood count 10.8, hemoglobin 15.9, platelet count 550,000. Sodium 140, potassium 3.9, chloride 100, bicarbonate 28, BUN 13, creatinine 0.6. IMPRESSION: 1. A 48 year old with acute hypoxemic respiratory failure. 2. Delirium tremens. 3. Pneumonia/cavitary lung disease. 4. Chest wall injury with substernal hematoma. RECOMMENDATION: 1. Continue oxygen for hypoxemic respiratory failure. 2. Continue antibiotics per Infectious Disease. 3. Continue alcohol withdrawal protocol. 4. Alcohol cessation strongly recommended during this hospitalization and after discharge. cc: Ronnie Meyer MD
[2018-09-01] MEDS: AZACTAM 2 GM in NS 100 ML IV SCH (15:27)
[2018-09-01] MEDS: ATARAX PO PRN (15:32)
--- NOTE | 2018-09-01 18:07 | INFECTIOUS DISEASE PROGRESS NO ---
DATE: 09/01/2018 PRESENT ILLNESS: Mr. Villatoro is being treated for a probable septic emboli to the left lower lung, and may also have an aspiration pneumonia. He is going through DTs and is sedated on an Ativan drip, and tied down to the bed for his own protection. MEDICATIONS: He is on day 7 of cefepime 2 g IV every 12 hours, and day 8 of vancomycin IV per pharmacy dosing. Today he has developed an erythematous, splotchy rash, and has a documented allergy to penicillins, so we will discontinue cefepime. OBJECTIVE: Vital signs: Temperature is 98.2 degrees, pulse rate 85, respiratory rate 13, blood pressure 104/65, O2 saturation is 96% on 2 L nasal cannula. General: This is a critically ill- appearing, middle-aged gentleman. He is lying in the bed, currently sedated but arousable, with restraints on his extremities. HEENT: Atraumatic, normocephalic. Oral mucous membranes are pink and dry. Conjunctivae are pink. Neck is supple. Trachea is midline. Cardiovascular: Heart rate and rhythm are regular. Normal sinus rhythm on the monitor. Pedal and radial pulses are +1 bilaterally. No edema is noted. Respiratory: Lung sounds are clear in the upper lobes. Diminished in the bases. Neurologic: He is drowsy and lethargic but arousable. Speech is slurred and verbalizations are unintelligible at this time. Integumentary: There is a new rash that has developed with splotchy erythema noted to his face, neck, upper arms and trunk. LABORATORY AND X-RAY: Today his white count is 10.78, hemoglobin 15.9, platelet count 550,000. Creatinine is 0.6, estimated GFR is greater than 60. Total bilirubin is 0.61, AST 12, ALT 26, alkaline phosphatase 135. An abdominal chest x-ray done this morning shows constipation and bibasilar atelectasis. ASSESSMENT AND PLAN: Mr. Villatoro is being treated for aspiration pneumonia and a possible septic emboli. He has previous documentation of a penicillin allergy. Although has done fine on cefepime thus far, we will assume that is the cause of his rash at this point. We will discontinue cefepime and start him on aztreonam 2 g intravenously every 8 hours. We will also continue the vancomycin at this time. These plans have been discussed with and recommended by Dr. Power. COMORBIDITIES: for Mr. Villatoro include cigarette smoking and alcohol abuse. Dictated by ELENA Zamudio for Mauro Power MD This chart was documented by, ELENA Zamudio and accurately reflects the services performed, treatment plan and medical decisions as attested by the providers signature Mauro Power MD. cc: Mauro Power MD [facility]
[2018-09-02] MEDS: DUONEB (A & A) INH SCH ×7 (00:16→23:24)
[2018-09-02] MEDS: AZACTAM 2 GM in NS 100 ML IV SCH ×3 (00:20→15:08)
[2018-09-02] MEDS: LIBRIUM PO SCH ×4 (00:21→17:30)
[2018-09-02] MEDS: GEODON IM PRN ×3 (02:31→15:09)
[2018-09-02] MEDS: SODIUM CHLORIDE 0.9% INJ SCH (02:31)
[2018-09-02] MEDS: VANCOMYCIN 2,000 MG in NS 500 ML IV SCH ×2 (03:57→15:09)
[2018-09-02 06:06] LABS: BASO# 0.02 X1000 (0.0-0.2); BASO% 0.2 % (0.0-0.8); EOS% 2.3 % (0.0-10.0); HEMATOCRIT 48.9 % (42.0-52.0); HEMOGLOBIN 16.3 g/dL (14.0-18.0); IMM GRAN# 0.03 X1000 (0.0-0.04); IMM GRAN% 0.2 % (0.0-0.5); LYMPH# 1.79 X1000 (1.2-3.4); LYMPH% 13.6 % (20.5-51.1); MCH 30.1 PG (27-31); MCHC 33.3 g/dL (33-37); MCV 90.4 FL (81-99); MONO# 1.12 X1000 (0.11-0.59); MONO% 8.5 % (1.7-9.3); MPV 7.9 FL (7.4-10.4); NEUT# 9.87 X1000 (1.4-6.5); NEUT% 75.2 % (42.2-75.2); PLT 406 X1000 (130-400); RBC 5.41 XMIL (4.7-6.1); RDW 12.7 % (11.5-14.5); WBC 13.13 X1000 (4.8-10.8)
[2018-09-02 06:28] LABS: AGAP 13; ALB/GLOB RATIO 0.9; ALBUMIN 3.4 g/dL (3.5-5.0); ALKALINE PHOSPHATASE 132 U/L (32-122); BUN 13 mg/dL (8-22); CALCIUM 9.3 mg/dL (8.8-10.2); CHLORIDE 99 mmol/L (98-107); COSMO 279; CREATININE 0.6 mg/dL (0.7-1.2); ESTIMATED GFR > 60; GLUCOSE 116 mg/dL (70-104); GOT 12 U/L (10-34); GPT 26 U/L (10-44); SODIUM 139 mmol/L (136-145); TCO2 27 mmol/L (25-35); TOTAL BILIRUBIN 0.67 mg/dL (0.20-1.00)
[2018-09-02] MEDS: MUCOMYST 20% INH SCH ×2 (08:08→19:54)
[2018-09-02] MEDS: CLINIMIX E 4.25%-5% SOLUTION 1,000 ML IV SCH ×2 (08:45→20:56)
[2018-09-02] MEDS: PROTONIX IV SCH (08:46)
[2018-09-02] MEDS: LACTULOSE PO SCH ×2 (08:47→20:56)
[2018-09-02] MEDS: MIRALAX PO SCH ×2 (08:47→20:56)
[2018-09-02] MEDS: LIORESAL PO SCH ×3 (08:48→20:56)
[2018-09-02] MEDS: NICODERM PATCH TD SCH (08:48)
[2018-09-02] MEDS: LOVENOX SUBQ SCH (08:48)
[2018-09-02] MEDS: ATARAX PO PRN (08:48)
[2018-09-02] MEDS: COLACE PO SCH ×2 (08:48→20:56)
[2018-09-02] MEDS: MORPHINE IV PRN (13:16)
--- NOTE | 2018-09-02 15:45 | PROGRESS NOTE ---
DATE: 09/02/2018 SUBJECTIVE: The patient is sedated right now. He is still having issues with agitation and requiring Geodon p.r.n. as well as the Ativan drip. OBJECTIVE: Vital signs: Temperature is 98.2, blood pressure 130/89, heart rate 94, respirations 18, O2 saturation is 96% on 2 L nasal cannula. General: This is an elderly male lying in bed, in no acute distress. Heart: S1 and S2 normal. Regular rate and rhythm. Lungs: Equal air entry bilaterally. No crackles. No rales. Abdomen: Positive bowel sounds. Soft, nontender and nondistended. Extremities: No edema, no cyanosis. Neurologic: The patient is currently sedated. DIAGNOSTIC DATA: White blood cell count is 13, hemoglobin 16, hematocrit 48, platelets 406. Sodium is 139, potassium 4, chloride 99, CO2 is 27, BUN is 13, creatinine 0.6, glucose 116. ASSESSMENT AND PLAN: 1. Alcohol withdrawal with delirium tremens. Continue with the Ativan drip and Geodon. 2. Pneumonia with a cavitary lung lesion. Continue with antibiotic therapy as directed by Dr. Power. 3. Hypertension. Stable. 4. GI prophylaxis. Continue on Protonix. 5. Constipation. Continue with the laxatives. 6. DVT prophylaxis. Continue on Lovenox. cc: Summer Pepper MD MTDD
[2018-09-02] MEDS: ATIVAN 20 MG in NS 190 ML IV SCH (16:24)
--- NOTE | 2018-09-02 20:17 | PULMONOLOGY PROGRESS NOTE ---
DATE: 09/02/2018 SUBJECTIVE: The patient is awake, alert, but not oriented. He reports he is "doing okay." OBJECTIVE: Vital Signs: The patient has been afebrile over the last 24 hours. Blood pressure 137/94, heart rate 104, respiratory rate 18, oxygen saturation 94% on 2 L per nasal cannula. HEENT: Pupils are equal and reactive. Oropharynx appears clear. Neck: Supple. Chest: Reveals occasional rhonchi bilaterally. Cardiac exam: S1-S2. Abdomen: Soft and without hepatosplenomegaly. Extremities: Reveal trace edema. LABORATORIES: White blood count 13.13, hemoglobin 16.3, platelet count 406,000. Sodium 139, potassium 4.2, chloride 99, bicarbonate 27, BUN is 13, creatinine 0.6. IMPRESSION: A 48-year-old with: 1. Aspiration pneumonia. 2. Possible septic emboli. 3. Acute hypoxemic respiratory failure. 4. Delirium tremens. Delirium tremens continues to improve. 5. The patient is also a smoker and has ongoing alcohol use. RECOMMENDATIONS: 1. Continue oxygen for hypoxemic respiratory failure. 2. Continue antibiotics per Infectious Disease. 3. Continue to follow for alcohol withdrawal and treat as appropriate. 4. Alcohol and tobacco cessation will be discussed as mental status improves. 5. Followup chest x-ray tomorrow morning. cc: Ronnie Meyer MD
[2018-09-03] MEDS: CLINIMIX E 4.25%-5% SOLUTION 1,000 ML IV SCH ×3 (00:14→20:55)
[2018-09-03] MEDS: LIBRIUM PO SCH ×4 (00:30→17:26)
[2018-09-03] MEDS: AZACTAM 2 GM in NS 100 ML IV SCH ×3 (00:30→15:06)
[2018-09-03] MEDS: DUONEB (A & A) INH SCH ×6 (03:53→23:57)
[2018-09-03] MEDS: VANCOMYCIN 2,000 MG in NS 500 ML IV SCH ×2 (04:29→15:56)
[2018-09-03 06:05] LABS: MCH 30.2 PG (27-31); MCHC 33.3 g/dL (33-37); MCV 90.6 FL (81-99); RBC 5.3 XMIL (4.7-6.1); RDW 12.8 % (11.5-14.5); WBC 11.29 X1000 (4.8-10.8)
[2018-09-03 06:50] LABS: AGAP 11; BUN 16 mg/dL (8-22); CALCIUM 9.2 mg/dL (8.8-10.2); CHLORIDE 96 mmol/L (98-107); COSMO 272; CREATININE 0.6 mg/dL (0.7-1.2); ESTIMATED GFR > 60; GLUCOSE 111 mg/dL (70-104); POTASSIUM 4.1 mmol/L (3.5-5.1); SODIUM 135 mmol/L (136-145); TCO2 28 mmol/L (25-35)
[2018-09-03] MEDS: MUCOMYST 20% INH SCH ×2 (08:15→19:46)
[2018-09-03] MEDS: GEODON IM PRN ×2 (08:25→21:03)
[2018-09-03] MEDS: LIORESAL PO SCH ×3 (08:26→20:54)
[2018-09-03] MEDS: ATIVAN IV PRN ×2 (08:26→12:45)
[2018-09-03] MEDS: NICODERM PATCH TD SCH (08:26)
[2018-09-03] MEDS: COLACE PO SCH ×2 (08:26→20:54)
[2018-09-03] MEDS: PROTONIX IV SCH (08:26)
[2018-09-03] MEDS: LACTULOSE PO SCH ×2 (08:26→20:55)
[2018-09-03] MEDS: LOVENOX SUBQ SCH (08:26)
[2018-09-03] MEDS: MIRALAX PO SCH ×2 (08:27→20:54)
--- NOTE | 2018-09-03 09:10 | Diag Imaging Result Doc PS360 ---
EXAM: CHEST-PORTABLE - 09/03/2018 HISTORY: abnormal exam TECHNIQUE: Portable chest COMPARISON: 08/31/2018 FINDINGS: There has been interval insertion of PICC from the right, with its tip at or near the caval atrial junction. Heart size appears within normal limits. Inspiration is mildly shallow. There has been interval decrease in right basilar opacity. There is infiltrate at the left base which appears to have have increased mildly. There is no substantial pleural effusion or pneumothorax identified. IMPRESSION: Decrease in right basilar opacity. Infiltrate at left base which appears to have increased mildly. Electronically signed by Rito Frias 09/03/2018 9:07 AM
[2018-09-03] MEDS: ATARAX PO PRN (11:03)
--- NOTE | 2018-09-03 12:57 | PROGRESS NOTE ---
DATE: 09/03/2018 SUBJECTIVE: The patient is resting in bed. He is still very impulsive and requiring Geodon for agitation. OBJECTIVE: Vital Signs: Temperature 97 degrees, blood pressure 117/79, heart rate 87, respirations 18, O2 saturation 96% on 2 L nasal cannula. General: This is an elderly male, lying in bed in no acute distress. Heart: S1, S2 normal. Regular rate and rhythm. Lungs: Equal air entry bilaterally. Abdomen: Positive bowel sounds. Soft, nontender, nondistended. Extremities: No edema. No cyanosis. Neurologic: The patient is awake, but confused. LABORATORY DATA: White blood cell count 11, hemoglobin 16, hematocrit 48, platelets 355,000. Sodium 135, potassium 4.1, chloride 96, CO2 of 28, BUN 16, creatinine 0.6, glucose 111. ASSESSMENT AND PLAN: 1. Aspiration pneumonia. Continue with antibiotic therapy. 2. Possible septic emboli to the lung. Aware. 3. Hypertension. Stable. 4. Gastrointestinal prophylaxis. Continue Protonix. 5. Deep venous thrombosis prophylaxis. Continue on Lovenox. cc: Summer Pepper MD
[2018-09-03] MEDS: ATIVAN 20 MG in NS 190 ML IV SCH (13:41)
--- NOTE | 2018-09-03 14:42 | PULMONOLOGY PROGRESS NOTE ---
DATE: 09/03/2018 SUBJECTIVE: The patient is awake, alert and more conversant. He continues to hallucinate. OBJECTIVE: Vital Signs: The patient is afebrile for the last 24 hours. Blood pressure 126/91, heart rate 88, respiratory rate 18, oxygen saturation 96% on 2 L per nasal cannula. HEENT: Pupils are equal and reactive. Oropharynx appears clear. Neck: Is supple. Chest: Reveals crackles at the right base. Cardiac exam: S1, S2. Abdomen: Soft without hepatosplenomegaly. Extremities: Without edema. LABORATORIES: White blood count 11.29, hemoglobin 16.0, platelet count 355,000. Sodium 135, potassium 4.1, chloride 96, bicarbonate 28, BUN 16, creatinine 0.6. Chest x-ray reveals decrease in right and left basilar opacities. IMPRESSION: A 48-year-old with aspiration pneumonia, acute hypoxemic respiratory failure, ongoing tobacco and alcohol use, delirium tremens. RECOMMENDATION: 1. Continue to wean oxygen as tolerated. 2. Continue antibiotics per Infectious Disease. 3. Continue treatment for alcohol withdrawal. 4. Smoking cessation recommended. cc: Ronnie Meyer MD
[2018-09-03] MEDS: NORCO-10 PO PRN (15:13)
[2018-09-03] MEDS: MORPHINE IV PRN (21:04)
[2018-09-04] MEDS: AZACTAM 2 GM in NS 100 ML IV SCH ×3 (00:45→16:36)
[2018-09-04] MEDS: LIBRIUM PO SCH ×4 (00:45→17:08)
[2018-09-04] MEDS: VANCOMYCIN 2,000 MG in NS 500 ML IV SCH ×2 (03:20→16:13)
[2018-09-04] MEDS: CLINIMIX E 4.25%-5% SOLUTION 1,000 ML IV SCH ×2 (03:20→14:11)
[2018-09-04] MEDS: DUONEB (A & A) INH SCH ×5 (04:35→23:24)
[2018-09-04 06:12] LABS: HEMATOCRIT 49.2 % (42.0-52.0); HEMOGLOBIN 16.3 g/dL (14.0-18.0); MCHC 33.1 g/dL (33-37); MCV 90.4 FL (81-99); MPV 8.6 FL (7.4-10.4); RBC 5.44 XMIL (4.7-6.1); WBC 10.31 X1000 (4.8-10.8)
[2018-09-04 06:30] LABS: AGAP 13; BUN 20 mg/dL (8-22); CALCIUM 9.2 mg/dL (8.8-10.2); CHLORIDE 100 mmol/L (98-107); COSMO 278; CREATININE 0.7 mg/dL (0.7-1.2); ESTIMATED GFR > 60; GLUCOSE 95 mg/dL (70-104); POTASSIUM 4.2 mmol/L (3.5-5.1); SODIUM 138 mmol/L (136-145); TCO2 25 mmol/L (25-35)
[2018-09-04] MEDS: PROTONIX IV SCH (08:08)
[2018-09-04] MEDS: MUCOMYST 20% INH SCH ×2 (08:22→20:07)
[2018-09-04] MEDS: LACTULOSE PO SCH ×2 (08:58→20:38)
[2018-09-04] MEDS: LOVENOX SUBQ SCH (08:58)
[2018-09-04] MEDS: COLACE PO SCH ×2 (08:58→20:39)
[2018-09-04] MEDS: LIORESAL PO SCH ×3 (08:58→20:39)
[2018-09-04] MEDS: MIRALAX PO SCH ×4 (08:59→20:39)
[2018-09-04] MEDS: NICODERM PATCH TD SCH (09:09)
[2018-09-04] MEDS: ATIVAN IV PRN ×3 (11:20→19:44)
[2018-09-04] MEDS ORDERED: DULCOLAX PR ONE (11:42)
[2018-09-04] MEDS: GEODON IM PRN ×2 (12:03→22:12)
[2018-09-04] MEDS: STERILE WATER INJ. INJ PRN ×2 (12:03→22:12)
--- NOTE | 2018-09-04 12:25 | Diag Imaging Result Doc PS360 ---
EXAM: KUB ABDOMEN 09/04/2018 HISTORY: constipation TECHNIQUE: KUB COMMENT: There is formed stool in the rectum. There is gas and stool throughout the colon. There is also gas throughout much of the small bowel without evidence of dilatation. IMPRESSION: Constipation, slightly improved since 09/01/2018. Electronically signed by Gui Winslow 09/04/2018 12:22 PM
[2018-09-04] MEDS: ATIVAN 20 MG in NS 190 ML IV SCH (12:27)
--- NOTE | 2018-09-04 16:38 | PROGRESS NOTE ---
DATE: 09/04/2018 SUBJECTIVE: No major overnight events. Nurse states that he seems less agitated and confused today compared to prior. He did get pretty agitated, though, when his parents were here and needed some medication to calm him. OBJECTIVE: He continues afebrile. Blood pressure 145/91, pulse 90s to low 100s, respirations 19, saturation 99% on room air. Mr. Villatoro is supine in bed, awake, alert, regards as I enter the room. He is oriented to self. He correctly guessed the hospital. He knows the city of [place], the month, he was off by 3 days with today's date. He knew the president. He follows simple commands consistently. Pupils are equal, round and reactive to bright light. Gaze is conjugate. Face is symmetric with equal activation. He moves his extremities equally without obvious deficit. He is in 4-point restraints. DIAGNOSTIC DATA: White count normal. Sodium, BUN and creatinine normal. AST and ALT normal. ASSESSMENT AND PLAN: Remains global encephalopathy with hyperactive delirium. All secondary to DTs. He is improved today compared to when I saw him last week, and that is reassuring. I would continue with management as you are doing and continue to follow him clinically. cc: Susan Sidhu MD
[2018-09-04] MEDS: MORPHINE IV PRN ×2 (18:08→22:12)
[2018-09-04] MEDS: NORCO-10 PO PRN (19:44)
[2018-09-04] MEDS ORDERED: MILK OF MAGNESIA PO ONE (21:00)
[2018-09-05] MEDS: AZACTAM 2 GM in NS 100 ML IV SCH ×3 (00:40→15:49)
[2018-09-05] MEDS: LIBRIUM PO SCH ×5 (00:42→17:38)
--- NOTE | 2018-09-05 01:20 | PROGRESS NOTE ---
DATE: 09/04/2018 SUBJECTIVE: The patient is resting comfortably. He still has periods of confusion and agitation. OBJECTIVE: Vital Signs: Temperature 98.5 degrees, blood pressure 145/91, heart rate 81, respirations 19, O2 saturation is 99% on 2 L nasal cannula. General: This is a middle-aged male lying in bed in no acute distress. Heart: S1 and S2 normal. Tachycardic. Lungs: Clear to auscultation bilaterally. Abdomen: Positive bowel sounds. Soft, nontender, nondistended. Extremities: No edema. No cyanosis. Neurologic: The patient is awake, but confused. He is able to move all 4 extremities. LABS: White blood cell count 10, hemoglobin 16, hematocrit 49 platelets 308, 000. Sodium 138, potassium 4.2, chloride 100, CO2 of 25, BUN 20, creatinine 0.7, glucose 95. ASSESSMENT AND PLAN: 1. Aspiration pneumonia. Continue with bronchodilator therapy, intravenous antibiotics, and supplemental oxygen. 2. Septic emboli to the left lower lung. Aware. 3. Alcohol withdrawal with delirium tremens. We will try and wean the patient off of the Ativan drip. Continue on Librium. 4. Constipation. We will order a suppository. We will also start low-dose Reglan. 5. Tobacco dependence. Continue on the NicoDerm patch. 6. Gastrointestinal prophylaxis. Continue on Protonix. 7. Deep vein thrombosis prophylaxis. Continue on Lovenox. cc: Summer Pepper MD MTDD
[2018-09-05] MEDS: DUONEB (A & A) INH SCH ×6 (03:27→23:40)
[2018-09-05] MEDS: ATARAX PO PRN (03:43)
[2018-09-05] MEDS: CLINIMIX E 4.25%-5% SOLUTION 1,000 ML IV SCH ×2 (03:43→17:38)
[2018-09-05] MEDS: MORPHINE IV PRN ×2 (03:45→11:58)
[2018-09-05] MEDS: VANCOMYCIN 2,000 MG in NS 500 ML IV SCH ×2 (03:45→16:04)
[2018-09-05] MEDS: ATIVAN IV PRN ×2 (03:45→18:40)
[2018-09-05] MEDS: ATIVAN 20 MG in NS 190 ML IV SCH (05:21)
[2018-09-05] MEDS: STERILE WATER INJ. INJ PRN ×2 (05:22→21:35)
[2018-09-05] MEDS: GEODON IM PRN ×2 (05:22→21:36)
[2018-09-05 05:26] LABS: HEMATOCRIT 53.7 % (42.0-52.0); HEMOGLOBIN 18.3 g/dL (14.0-18.0); MCH 30.7 PG (27-31); MCHC 34.1 g/dL (33-37); MCV 89.9 FL (81-99); MPV 9.4 FL (7.4-10.4); RBC 5.97 XMIL (4.7-6.1); RDW 13.1 % (11.5-14.5); WBC 8.6 X1000 (4.8-10.8)
[2018-09-05 05:31] LABS: AGAP 14; BUN 21 mg/dL (8-22); CALCIUM 8.6 mg/dL (8.8-10.2); CHLORIDE 98 mmol/L (98-107); COSMO 274; CREATININE 0.6 mg/dL (0.7-1.2); ESTIMATED GFR > 60; GLUCOSE 112 mg/dL (70-104); POTASSIUM 4.8 mmol/L (3.5-5.1); SODIUM 135 mmol/L (136-145); TCO2 23 mmol/L (25-35)
--- NOTE | 2018-09-05 06:17 | INFECTIOUS DISEASE PROGRESS NO ---
DATE: 09/04/2018 PRESENT ILLNESS: Mr. Villatoro has a probable septic emboli to the left lower lobe and aspiration pneumonia. He is also going through DT's and is on an Ativan drip with restraints to his extremities. MEDICATIONS: Today is day 3 of aztreonam 2 g IV every 8 hours and day 11 of vancomycin IV per pharmacy dosing. PHYSICAL EXAMINATION: Vital Signs: Temperature is 98.5 degrees, pulse rate 102 , respiratory rate 23, blood pressure 140/85, O2 saturation is 97% on 2 L nasal cannula. General: This is a critically ill-appearing, middle-aged gentleman. He is lying in the bed. Talkative and confused, in no acute distress. HEENT: Atraumatic, normocephalic. Oral mucous membranes are pink and dry. Conjunctivae are pink. Neck: Supple. Trachea is midline. Cardiovascular: Heart rate and rhythm are regular and tachycardic. Sinus tachycardia on the monitor. Pedal and radial pulses are +1 bilaterally. Respiratory: Lung sounds are clear in the upper lobes, diminished in the bases. Abdomen: Soft, round, and nontender. Bowel sounds are active. Neurologic: He is awake, alert, and talkative. Oriented to person only. Able to move all extremities independently. LABORATORY AND X-RAY: Today, his white count is 10.31, hemoglobin 16.3, platelet count 308,000. Creatinine is 0.7. Estimated GFR is greater than 60. Abdominal x-ray done today showed constipation that is slightly improved. Chest x-ray done yesterday shows decrease in right basilar opacity, infiltrate at left base, which appears to have increased mildly. ASSESSMENT AND PLAN: Mr. Villatoro is being treated for aspiration pneumonia and a possible septic emboli. He is receiving vancomycin and aztreonam. He continues to have a pneumonia on chest x-ray, with some areas of improvement, and some that have worsened slightly. At this point, his white count is back to normal, so we will continue current medications. These plans have been discussed with and recommended by Dr. Power. COMORBIDITIES: For Mr. Villatoro include cigarette smoking and alcohol abuse with delirium tremens. Dictated by ELENA Zamudio for Mauro Power MD This chart was documented by, ELENA Zamudio and accurately reflects the services performed, treatment plan and medical decisions as attested by the providers signature Mauro Power MD. cc: Mauro Power MD MTDD
[2018-09-05] MEDS: MUCOMYST 20% INH SCH ×2 (08:15→19:19)
[2018-09-05] MEDS: PROTONIX IV SCH (08:21)
[2018-09-05] MEDS: LACTULOSE PO SCH ×2 (08:21→20:10)
[2018-09-05] MEDS: LOVENOX SUBQ SCH (08:21)
[2018-09-05] MEDS: SODIUM CHLORIDE 0.9% INJ SCH (08:21)
[2018-09-05] MEDS: NICODERM PATCH TD SCH (08:21)
[2018-09-05] MEDS: MIRALAX PO SCH ×2 (08:21→20:10)
[2018-09-05] MEDS: LIORESAL PO SCH ×3 (08:22→20:12)
[2018-09-05] MEDS: COLACE PO SCH ×2 (08:22→20:10)
--- NOTE | 2018-09-05 13:37 | PROGRESS NOTE ---
DATE: 09/05/2018 SUBJECTIVE: The patient is resting comfortably in bed. Currently on 4-point restraints. OBJECTIVE: Vital Signs: Vital signs are as follows: Temperature 99.2 degrees, pulse is 99, respiratory rate 18, blood pressure is 122/86, oxygen saturation 97%. HEENT: Atraumatic, normocephalic. Cardiovascular system: S1, S2. Respiratory system: Has evidence of good air entry bilaterally. Abdomen: Soft, nontender. No masses felt. Extremities: No evidence of edema. Central nervous system: No obvious focal deficits noted. LABS: Labs are as follows: WBC is 8.6, hematocrit is 33.7, platelet count is 200. Sodium is 135, potassium 4.8, chloride is 98,, bicarbonate is 23, BUN is 21, creatinine 0.6. ASSESSMENT AND PLAN: 1. Aspiration pneumonia. Continue antibiotics. Maintain patient on bronchodilator therapy, as well as supplemental oxygen. 2. Alcoholism. Maintain patient on delirium tremens prophylaxis, thiamine, as well as folic acid. Also, maintain patient on multivitamins. Check magnesium and phosphorus level. Replace as needed. 3. Septic emboli to the left lung. Pulmonary team is following. 4. Deep vein thrombosis prophylaxis. Lovenox. 5. Gastrointestinal prophylaxis. Proton pump inhibitor. cc: Adriel Ace MD
[2018-09-05] MEDS: DILAUDID IV PRN ×2 (14:08→22:30)
--- NOTE | 2018-09-05 15:10 | INFECTIOUS DISEASE PROGRESS NO ---
DATE: 09/05/2018 PRESENT ILLNESS: The patient is being treated for pulmonary infection. I think is a combination of aspiration pneumonia and the radiologist brought up the possibility of septic emboli. The patient is going through DTs. MEDICATIONS: The patient has been on treated now for a total of 12 days with a combination of aztreonam and vancomycin. PHYSICAL EXAMINATION: Vital Signs: Temperature is 99.2 degrees, pulse 99, respirations 18, blood pressure 122/86. General: This is a ill-appearing middle-aged male. He is lying in bed in restraints. He has not been yelling or screaming and he has been carrying on conversation. Head/eyes/ears/nose/throat: He can hear my spoken words and can see near objects. He does not have any white patches on his tongue and he tells me his tongue is not sore also. Neck: No meningismus. Lungs: Clear to auscultation. Cardiovascular: Heart rate is regular. Abdomen: Soft and nontender. Neurologic: The patient is alert. He can move his extremities. There is no tremor. Integument: No rashes. LAB AND X-RAY: X-ray of the abdomen showed findings consistent with constipation. The patient's CBC shows a white count of 9600, hemoglobin 18.3, and platelet count 200,000. Creatinine is 0.6. GFR is greater than 60. ASSESSMENT AND PLAN: The patient is being treated for pneumonia. I plan to continue vancomycin and aztreonam. COMORBIDITIES: Cigarette smoking and alcohol abuse. cc: Mauro Power MD
[2018-09-05] MEDS: NORCO-10 PO PRN (20:11)
[2018-09-06] MEDS: LIBRIUM PO SCH ×2 (00:52→06:43)
[2018-09-06] MEDS: AZACTAM 2 GM in NS 100 ML IV SCH ×3 (00:52→15:00)
[2018-09-06] MEDS: DILAUDID IV PRN ×3 (02:48→20:19)
[2018-09-06] MEDS: STERILE WATER INJ. INJ PRN (02:48)
[2018-09-06] MEDS: GEODON IM PRN (02:49)
[2018-09-06] MEDS: ATIVAN 20 MG in NS 190 ML IV SCH (04:20)
[2018-09-06] MEDS: VANCOMYCIN 2,000 MG in NS 500 ML IV SCH ×2 (04:24→15:58)
[2018-09-06] MEDS: DUONEB (A & A) INH SCH ×5 (05:05→20:04)
[2018-09-06 05:57] LABS: AGAP 14; BUN 19 mg/dL (8-22); CALCIUM 9.4 mg/dL (8.8-10.2); CHLORIDE 100 mmol/L (98-107); COSMO 274; CREATININE 0.5 mg/dL (0.7-1.2); ESTIMATED GFR > 60; GLUCOSE 120 mg/dL (70-104); POTASSIUM 4.9 mmol/L (3.5-5.1); SODIUM 135 mmol/L (136-145); TCO2 21 mmol/L (25-35)
[2018-09-06] MEDS: ATIVAN IV PRN (06:43)
[2018-09-06] MEDS: CLINIMIX E 4.25%-5% SOLUTION 1,000 ML IV SCH (06:43)
[2018-09-06] MEDS: NORCO-10 PO PRN ×2 (06:43→16:16)
[2018-09-06] MEDS: MUCOMYST 20% INH SCH ×2 (08:15→20:04)
[2018-09-06] MEDS: LIORESAL PO SCH ×3 (08:43→20:16)
[2018-09-06] MEDS: COLACE PO SCH ×2 (08:43→20:16)
[2018-09-06] MEDS: LOVENOX SUBQ SCH (08:43)
[2018-09-06] MEDS: MIRALAX PO SCH ×2 (08:43→20:17)
[2018-09-06] MEDS: SODIUM CHLORIDE 0.9% INJ SCH (08:43)
[2018-09-06] MEDS: LACTULOSE PO SCH ×2 (08:43→20:16)
[2018-09-06] MEDS: NICODERM PATCH TD SCH (08:43)
[2018-09-06] MEDS: PROTONIX IV SCH (08:43)
--- NOTE | 2018-09-06 12:25 | PROGRESS NOTE ---
DATE: 09/06/2018 SUBJECTIVE: The patient is resting in bed. Not in any obvious distress. OBJECTIVE: Vital signs: Temperature is 98.4 degrees, pulse 95, respirations 12 , blood pressure 135/85, oxygen saturation is 94%. HEENT: Atraumatic, normocephalic. Cardiovascular: S1, S2. Respiratory: Has evidence of good entry bilaterally. Abdomen: Soft, nontender. No masses felt. Extremities: No evidence of edema. Central nervous system: No obvious focal deficit noted. LABORATORY DATA: Sodium is 135, potassium is 4.9, chloride is 100, bicarb 21, BUN is 19, creatinine 0.5. ASSESSMENT AND PLAN: 1. Aspiration pneumonia. Continue antibiotics. Maintain patient on bronchodilator therapy as well as supplemental oxygen. 2. Alcoholism. Continue delirium tremens prophylaxis. Thiamine and folic acid , as well as multivitamin. Correct electrolyte abnormalities as needed. 3. Septic emboli to the left lung. Pulmonary team following. 4. Deep vein thrombosis prophylaxis. Lovenox. 5. Gastrointestinal prophylaxis. PPI. cc: Adriel Ace MD MTDD
[2018-09-06] MEDS: FOLIC ACID 1 MG in NS 50 ML IV SCH (13:06)
[2018-09-06] MEDS: THIAMINE 100 MG in NS 50 ML IV SCH (13:06)
--- NOTE | 2018-09-06 18:56 | INFECTIOUS DISEASE PROGRESS NO ---
DATE: 09/06/2018 PRESENT ILLNESS: Mr. Villatoro is being treated for an aspiration pneumonia as well as possible septic emboli. He is doing better as far as that delirium tremens are concerned. He also has developed an oral candidiasis. MEDICATIONS: He is receiving IV vancomycin per pharmacy dosing and aztreonam 2 g IV every 8 hours. Today is day 13 of the treatment for his pneumonia. PHYSICAL EXAMINATION: Vital Signs: Temperature is 98.8 degrees, pulse rate 116 , respiratory rate 18, blood pressure 123/89, O2 saturation is 94% on 2 L nasal cannula. General: This is an acutely ill-appearing, middle-aged gentleman. He is sitting up in a chair, currently in no acute distress. HEENT: Atraumatic, normocephalic. Oral mucous membranes are pink and moist. He does have a white coating on his tongue. Conjunctivae are pink. Neck: Supple. Trachea is midline. Cardiovascular: Heart rate and rhythm are regular and tachycardic, sinus tachycardia on the monitor. Radial and pedal pulses +1 bilaterally. Respiratory: Lung sounds are clear to auscultation bilaterally. Abdomen: Soft, round, nontender, with positive bowel sounds. Neurologic: He is awake, alert, and oriented to person only. He is making more sense today, however, still some confusion noted. He is moving his extremities with generalized weakness. LABORATORY AND X-RAY: No CBC today. His creatinine is 0.5. Estimated GFR is greater than 60. No imaging reports today. ASSESSMENT AND PLAN: Mr. Villatoro is being treated for pneumonia. He is on vancomycin and aztreonam which we will continue at this time. Today it is noted that he does have a white coating on his tongue, so we will start him on nystatin [id number] 4 times a day. These plans have been discussed with and recommended by Dr. Power. COMORBIDITIES: Comorbidities for Mr. Villatoro include cigarette smoking and alcohol abuse with deconditioning due to extensive DT treatment with restraints. Dictated by ELENA Zamudio for Mauro Power MD This chart was documented by, ELENA Zamudio and accurately reflects the services performed, treatment plan and medical decisions as attested by the providers signature Mauro Power MD. cc: Mauro Power MD [facility]Jean
[2018-09-06] MEDS: LIBRIUM PO PRN (20:16)
[2018-09-06] MEDS: MYCOSTATIN SUSP PO SCH (20:16)
[2018-09-07] MEDS: GEODON IM PRN (00:01)
[2018-09-07] MEDS: STERILE WATER INJ. INJ PRN (00:01)
[2018-09-07] MEDS: DILAUDID IV PRN ×3 (00:12→22:40)
[2018-09-07] MEDS: AZACTAM 2 GM in NS 100 ML IV SCH ×3 (00:15→22:34)
[2018-09-07] MEDS: NORCO-10 PO PRN ×3 (01:29→16:15)
[2018-09-07] MEDS: LIBRIUM PO PRN ×2 (01:29→11:56)
[2018-09-07] MEDS: VANCOMYCIN 2,000 MG in NS 500 ML IV SCH (03:06)
[2018-09-07] MEDS: DUONEB (A & A) INH SCH ×7 (03:55→23:22)
[2018-09-07 05:48] LABS: BASO# 0.02 X1000 (0.0-0.2); BASO% 0.2 % (0.0-0.8); EOS# 0.25 X1000 (0.0-0.7); EOS% 2.7 % (0.0-10.0); HEMATOCRIT 46.6 % (42.0-52.0); HEMOGLOBIN 15.5 g/dL (14.0-18.0); LYMPH# 2.62 X1000 (1.2-3.4); LYMPH% 28.1 % (20.5-51.1); MCH 29.9 PG (27-31); MCHC 33.3 g/dL (33-37); MCV 89.8 FL (81-99); NEUT# 5.05 X1000 (1.4-6.5); PLT 300 X1000 (130-400); RBC 5.19 XMIL (4.7-6.1); RDW 12.6 % (11.5-14.5); WBC 9.34 X1000 (4.8-10.8)
[2018-09-07 05:56] LABS: MAGNESIUM 2.3 mg/dL (1.5-2.7); PHOSPHORUS 4.1 mg/dL (2.7-4.5)
[2018-09-07 06:03] LABS: AGAP 13; ALB/GLOB RATIO 1.1; ALBUMIN 3.7 g/dL (3.5-5.0); ALKALINE PHOSPHATASE 136 U/L (32-122); BUN 20 mg/dL (8-22); CALCIUM 9.4 mg/dL (8.8-10.2); CHLORIDE 98 mmol/L (98-107); COSMO 275; CREATININE 0.7 mg/dL (0.7-1.2); ESTIMATED GFR > 60; GLUCOSE 100 mg/dL (70-104); GOT 22 U/L (10-34); GPT 49 U/L (10-44); POTASSIUM 3.9 mmol/L (3.5-5.1); SODIUM 136 mmol/L (136-145); TCO2 25 mmol/L (25-35); TOTAL BILIRUBIN 0.45 mg/dL (0.20-1.00); TOTAL PROTEIN 7.2 g/dL (6.3-8.3)
[2018-09-07] MEDS: LOVENOX SUBQ SCH (08:19)
[2018-09-07] MEDS: COLACE PO SCH ×2 (08:20→22:35)
[2018-09-07] MEDS: NICODERM PATCH TD SCH (08:20)
[2018-09-07] MEDS: LIORESAL PO SCH ×3 (08:20→22:35)
[2018-09-07] MEDS: PROTONIX IV SCH (08:20)
[2018-09-07] MEDS: SODIUM CHLORIDE 0.9% INJ SCH (08:20)
[2018-09-07] MEDS: MYCOSTATIN SUSP PO SCH ×2 (08:20→12:53)
[2018-09-07] MEDS: MIRALAX PO SCH (08:20)
[2018-09-07] MEDS: LACTULOSE PO SCH (08:21)
[2018-09-07] MEDS ORDERED: FLINTSTONES COMPLETE PO SCH (09:00)
[2018-09-07] MEDS: MUCOMYST 20% INH SCH ×2 (11:14→19:16)
--- NOTE | 2018-09-07 11:42 | PROGRESS NOTE ---
DATE: 09/07/2018 SUBJECTIVE: Patient resting in bed. Not in any obvious distress. OBJECTIVE: Vital Signs: Temperature is 97 degrees, pulse 99, respiratory rate is 13, blood pressure is 128/78, oxygen saturation is 99%. HEENT: Atraumatic, normocephalic. Cardiovascular: S1, S2. Respiratory: Has evidence of good air entry bilaterally. Abdomen: Soft, nontender. No masses felt. Extremities: Trace edema in the lower extremities. Central Nervous System: No obvious focal deficits noted. LABORATORY DATA: WBC is 9.34, hematocrit is 46.6, with a platelet count of 300,000. Sodium is 136, potassium 3.9, chloride 98, bicarb 25, BUN is 20, creatinine 0.7. ASSESSMENT AND PLAN: 1. Aspiration pneumonia. Continue antibiotics, bronchodilator therapy, as well as supplemental oxygen. 2. Alcoholism. Continue delirium tremens prophylaxis. Maintain the patient on thiamine, folic acid, as well as multivitamin, and correct electrolyte abnormalities. 3. Septic emboli, left lung. Pulmonary team following. 4. Deep vein thrombosis prophylaxis. Lovenox. 5. Gastrointestinal prophylaxis. Proton pump inhibitor. 6. Disposition. The patient can be transferred out to medical floor. cc: Adriel Ace MD
[2018-09-07] MEDS: FOLIC ACID 1 MG in NS 50 ML IV SCH (11:55)
[2018-09-07] MEDS: THIAMINE 100 MG in NS 50 ML IV SCH (12:53)
--- NOTE | 2018-09-07 17:33 | INFECTIOUS DISEASE PROGRESS NO ---
DATE: 09/07/2018 PRESENT ILLNESS: Mr. Villatoro is being treated for possible septic emboli with aspiration pneumonia. He seems to finally be through with delirium tremors and is being transferred upstairs. He also has oral candidiasis. MEDICATIONS: He is on day 14 of his treatment for the pneumonia and is currently receiving aztreonam 2 g IV every 8 hours and vancomycin IV per pharmacy dosing. He is also getting nystatin swish and swallow 4 times a day for the oral candidiasis. PHYSICAL EXAMINATION: Vital Signs: Temperature is 98.8, pulse rate 105, respiratory rate 17, blood pressure 112/83, O2 saturation is 92% on 2 L nasal cannula. General: This is an acutely ill-appearing, middle-aged gentleman. He is sitting up in a chair, currently in no acute distress. HEENT: Atraumatic, normocephalic. Oral mucous membranes are pink and moist. There is a white/ordonez coating on his tongue. Conjunctivae are pink. Neck: Supple. Trachea is midline. Respiratory: Lung sounds are clear to auscultation bilaterally. Cardiovascular : Heart rate and rhythm are regular and tachycardic. Sinus tachycardia on the monitor. Pedal and radial pulses are +1 bilaterally. Abdomen: Soft, round and nontender. Bowel sounds are active. Neurologic: He is awake, alert, and oriented. Able to move all extremities with some generalized weakness due to deconditioning. LABORATORY AND X-RAY: Today his white count is 9.34, hemoglobin 15.5, platelet count 300,000. Creatinine is 0.7, estimated GFR is greater than 60. Total bilirubin is 0.45, AST 22, ALT 49, alkaline phosphatase 136. No imaging reports today. ASSESSMENT AND PLAN: Mr. Villatoro has been treated for the last 2 weeks for aspiration pneumonia and a possible septic emboli. For now, we will continue his vancomycin and aztreonam and repeat his chest x-ray in the morning to see how the pneumonia is progressing. We will also continue his nystatin swish and swallow until the coating on his tongue has resolved and/or the antibiotics have been completed. These plans have been discussed with and recommended by Dr. Power. COMORBIDITIES: For Mr. Villatoro include cigarette smoking, alcohol abuse and deconditioning due to extensive hospitalization. Dictated by ELENA Zamudio for Mauro Power MD This chart was documented by, ELENA Zamudio and accurately reflects the services performed, treatment plan and medical decisions as attested by the providers signature Mauro Power MD. cc: Mauro Power MD [facility]
[2018-09-08] MEDS: DUONEB (A & A) INH SCH ×6 (03:52→23:25)
[2018-09-08] MEDS: AZACTAM 2 GM in NS 100 ML IV SCH (04:08)
[2018-09-08] MEDS: DILAUDID IV PRN ×4 (04:09→20:57)
[2018-09-08] MEDS: NORCO-10 PO PRN ×3 (05:25→18:16)
--- NOTE | 2018-09-08 07:50 | Diag Imaging Result Doc PS360 ---
CHEST-2 VIEWS - 09/08/2018 INDICATION: pneumonia COMPARISON: 09/03/2018 FINDINGS: The lungs are normally expanded and clear. Heart size and mediastinal contours are normal. No pneumothorax or pleural effusion. IMPRESSION: Negative exam. Electronically signed by Ronni Haney 09/08/2018 7:48 AM
[2018-09-08] MEDS: MUCOMYST 20% INH SCH ×2 (08:01→19:58)
[2018-09-08] MEDS: LOVENOX SUBQ SCH (08:42)
[2018-09-08] MEDS: COLACE PO SCH ×2 (08:42→20:57)
[2018-09-08] MEDS: LIORESAL PO SCH ×3 (08:42→20:57)
--- NOTE | 2018-09-08 14:38 | Diag Imaging Result Doc PS360 ---
EXAM: CT HEAD/C-SPINE W/O CONTRAST INDICATION: recent fall TECHNIQUE: This exam was performed using automated exposure control, adjustment of mA or kV according to patient size, and/or use of iterative reconstruction technique. COMPARISON: CT cervical spine dated 09/22/2017 FINDINGS: Head: There is no definite acute infarct given the limited sensitivity of CT versus MRI. There is no discrete intracranial mass, mass effect, or intracranial hemorrhage. There is a small nondisplaced defect involving the right nasal bone. It is of unknown acuity and could be chronic. Please correlate clinically to exclude an acute nondisplaced nasal bone fracture. The calvaria is intact. Surrounding soft tissues are essentially unremarkable. C-spine: There is extensive multilevel facet arthropathy and there is somewhat milder multilevel degenerative disc disease. There is mild chronic anterior listhesis of C6 on C7. All of these findings are stable. Otherwise, there is no discrete fracture, acute subluxation, or intrinsic osseous lesion. The surrounding soft tissues are essentially unremarkable. IMPRESSION: 1.No evidence of acute intracranial pathology. 2.Small nondisplaced right nasal bone defect of unknown acuity. 3.Stable multilevel degenerative arthropathy but no evidence of fracture or other definite acute C-spine injury. Electronically signed by Farhad Mcdonough 09/08/2018 2:35 PM
[2018-09-08] MEDS: FOLIC ACID 1 MG in NS 50 ML IV SCH (14:49)
--- NOTE | 2018-09-08 15:42 | Diag Imaging Result Doc PS360 ---
EXAM: LUMBAR SPINE 1 VIEW HISTORY: recent fall TECHNIQUE: Single view COMPARISON: None. FINDINGS: There is loss of the normal lumbar lordosis. There is degenerative disc disease most marked at L4/L5 and L5/S1. There is no evidence for fracture or subluxation. Mild to moderate facet bony overgrowth is noted. IMPRESSION: Loss of the normal lumbar lordosis. Spondylosis. No acute fracture. Electronically signed by Rachael Malagon 09/08/2018 3:40 PM
--- NOTE | 2018-09-08 15:44 | Diag Imaging Result Doc PS360 ---
EXAM: XRAY HIP W/PELVIS BILAT 3-4VWS HISTORY: recent fall TECHNIQUE: Three views COMPARISON: 09/22/2017 FINDINGS: No acute fracture or dislocation is identified. Bilateral joint space narrowing compatible with osteoarthritis. IMPRESSION: Osteoarthritis. No acute abnormality. Electronically signed by Rachael Malagon 09/08/2018 3:42 PM
--- NOTE | 2018-09-08 18:09 | Diag Imaging Result Doc PS360 ---
EXAM: SHOULDER 1 VIEW RIGHT INDICATION: pain right shoulder region TECHNIQUE: One view COMPARISON: None. FINDINGS: The shoulder is externally rotated. There is no discrete fracture, dislocation, or significant intrinsic osseous lesion on this limited single view. The glenohumeral joint and AC joint are unremarkable. The surrounding soft tissues are essentially unremarkable. IMPRESSION: Unremarkable plain radiograph of the right shoulder. Electronically signed by Farhad Mcdonough 09/08/2018 6:07 PM
--- NOTE | 2018-09-08 19:41 | INFECTIOUS DISEASE PROGRESS NO ---
DATE: 09/08/2018 Mr. Villatoro has been treated for aspiration pneumonia with possible septic emboli and has had 15 days of antimicrobials at this point using aztreonam and vancomycin. Today his chest x-ray is negative with lungs normally expanded and clear. At this point we will discontinue his medications of aztreonam and vancomycin and sign off. Will be available to see him on an as-needed basis. These plans have been discussed with and recommended by Dr. Power. Dictated by ELENA Zamudio for Mauro Power MD This chart was documented by, ELENA Zamudio and accurately reflects the services performed, treatment plan and medical decisions as attested by the providers signature Mauro Power MD. cc: Mauro Power MD [facility]
--- NOTE | 2018-09-08 19:45 | PROGRESS NOTE ---
DATE: 09/08/2018 SUBJECTIVE: Patient resting in bed. Not in obvious distress. OBJECTIVE: Vital signs: Temperature 98.7 degrees, pulse 102, respiratory 16, blood pressure is 138/94, saturation 98%. HEENT: Atraumatic, normocephalic. Cardiovascular: S1, S2. Respiratory: Has evidence of good entry bilaterally. Abdomen: Soft, nontender. No masses. Extremities: No evidence of edema. Central nervous system: No obvious focal deficit noted. LABS: None. ASSESSMENT AND PLAN: 1. Aspiration pneumonia. Continue antibiotics. Bronchodilator therapy as well as supplemental oxygen. 2. Alcoholism. Continue delirium tremens prophylaxis. Maintain patient on thiamine folic acid, as well as multivitamin to correct electrolyte abnormalities. 3. Septic emboli, left lung. Pulmonary team following. 4. Deep vein thrombosis prophylaxis. Lovenox. 5. Gastrointestinal prophylaxis. Proton pump inhibitor. 6. Disposition. The patient can be discharged in the next 1 to 2 days and he will need in-home health services. cc: Adriel Ace MD
[2018-09-09] MEDS: NORCO-10 PO PRN ×2 (03:17→10:17)
[2018-09-09] MEDS: DUONEB (A & A) INH SCH ×3 (03:30→11:26)
[2018-09-09] MEDS: DILAUDID IV PRN (04:44)
[2018-09-09] MEDS: MUCOMYST 20% INH SCH (07:32)
[2018-09-09 08:33] VITALS: BP 137/93
[2018-09-09] MEDS: COLACE PO SCH (10:18)
[2018-09-09] MEDS: LIORESAL PO SCH (10:18)
[2018-09-09] MEDS: LOVENOX SUBQ SCH (10:18)
[2018-09-09] MEDS: FOLIC ACID 1 MG in NS 50 ML IV SCH (12:43)
--- NOTE | 2018-09-09 20:38 | DISCHARGE SUMMARY ---
ADMISSION DATE: 08/24/2018 DISCHARGE DATE: 09/09/2018 LENGTH OF STAY: Sixteen days. DISPOSITION: Home with home health. FOLLOWUP: 1. Dr. Ribeiro. 2. Dr. Power. 3. Dr. Laurent. CONSULTATIONS: During this admission, Pulmonary Medicine was consulted. The patient was seen by Dr. Ribeiro. Infectious Disease was also consulted. The patient was seen by Dr. Power. Neurology was consulted. The patient was seen by Dr. Sidhu, followed up by Dr. Hidalgo. INVASIVE PROCEDURES: None. DIAGNOSTIC DATA: Imaging studies of significance: A CT scan of the chest did show mediastinal adenopathy; atelectasis versus right lower lobe pneumonia; poorly defined thick-walled cavity in the left lower lobe. An echocardiogram showed an ejection fraction of 70%. No valvular abnormalities. Arterial Doppler studies showed normal resting lower extremity arterial studies. Doppler studies showed no DVTs. An aortic angiogram runoff showed no significant aortoiliac or lower extremity atherosclerotic disease. A CT scan of the head and spine showed no evidence of intracranial pathology. A lumbar x-ray showed loss of normal lumbar lordosis; there was spondylosis; no acute fracture. Hip x-ray showed no acute abnormality. ADMISSION DIAGNOSES: 1. Shortness of breath. 2. Right chest wall swelling. 3. Leukocytosis. 4. Alcohol abuse. DISCHARGE DIAGNOSES: 1. Acute hypoxemic respiratory failure on presentation, improved. 2. Chest wall injury with substernal hematoma, improved. 3. Cavitary pneumonia, suspicious for aspiration. 4. Delirium tremens. 5. Altered mental status on presentation secondary to delirium tremens. 6. Alcohol abuse. 7. Hypertension. DISCHARGE MEDICATIONS: 1. Flexeril 10 mg 3 times per day. 2. [place]. 3. Omeprazole 20 mg daily. 4. Robaxin 750 three times per day. 5. Vistaril 25 mg b.i.d. p.r.n. 6. Lisinopril 10 mg daily. 7. Thiamine 100 mg p.o. daily. 8. Baclofen 5 mg 3 times per day. 9. Multivitamin. PRESENTING COMPLAINT: Shortness of breath. HISTORY OF PRESENTING COMPLAINT: Mr. Villatoro is a 48-year-old male who got admitted on 08/24/2018 in [facility], initial presentation with shortness of breath, pain in the right subcutaneous tissue of the chest and altered mentation. Initially the patient was evaluated and was found to have a white cell count of about 16. A CT scan did show a cavitary lesion in the left lower which was suspicious for septic emboli. The patient was subsequently admitted for other medical care. HOSPITAL COURSE: Mr. Villatoro was admitted to the medical floor. He was started on broad-spectrum IV antibiotics. He was seen by multiple subspecialties including Pulmonary Medicine, Infectious Disease and Surgery. At some point Mr. Villatoro also became remarkably altered, which we thought was related to delirium tremens. Neurology was consulted. The patient was seen by Dr. Sidhu and followed up by Dr. Hidalgo. Throughout the hospital course Mr. Villatoro continued to improve from a respiratory standpoint, as well as from neurological standpoint. He has being on room air since 09/07/2018 and has been saturating very well. Yesterday, Infectious Disease decided to discontinue all the antibiotics since he has completed all of them. This morning Mr. Villatoro refers to be feeling a whole lot better. His current vital signs: Blood pressure 127/93, pulse is 84, respirations 20, temperature 97.6 degrees. Physical exam is unremarkable. He is clinically stable for discharge. We have stressed every single day about alcohol cessation. The patient has been started on baclofen for craving purposes. He is clinically stable for discharge. He is going to follow up with primary care and also with the subspecialties that have followed him up during his hospital course. All the discharge instructions have been discussed with him, and he voiced understanding. Time spent for discharge was 37 minutes. cc: MD Mauro Wray MD Jason R. Seale, MD Mamoun I. Najjar, MD
== END 2018-09-09 13:19 | disposition home or self-care (01) | DRG 177 ==
LOC: ED 10:53 → EDIPHOLD 22:51 → SUATTDRO 22:51 → 3S 08-25 15:08 → ICU 08-28 11:25 → 4N 09-07 15:16
PROVIDERS: ATTEND Internal Medicine
CPT/HCPCS: 36569; 70450; 71010; 71020; 71045; 71046; 71250; 72020; 72125; 73020; 73522; 74000; 74018; 74019; 74020; 75635; 80048; 80053; 80101; 80202; 80301; 80307; 80324; 80345; 80346; 80353; 80358; 80361; 80365; 81001; 82550; 83605; 83735; 83992; 84100; 84443; 84484; 85025; 85027; 85610; 85730; 87040; 87070; 87205; 93005; 93306; 93923; 93970; 94640; 94761; 94799; 96361; 96365; 96366; 96367; 96375; 96376; 97116; 97162; 97530; 99285; A9270; C9113; G0431; G0434; G0479; G0480; J0692; J1170; J1630; J1650; J1885; J1956; J2060; J2270; J2405; J2560; J2930; J3370; J3411; J3486; J7030; J7040; J7050; Q9967; S0073; S0164

== ENCOUNTER 2018-09-19 10:59 | Inpatient (IN) ==
[2018-09-19] MEDS ORDERED: MORPHINE IV ONE ×2 (11:34→13:51)
--- NOTE | 2018-09-19 11:59 | Diag Imaging Result Doc PS360 ---
CHEST-1 VIEW - 09/19/2018 INDICATION: CP COMPARISON: 09/12/2018 FINDINGS: There is a stable pulmonary nodule in the lateral left lung base.r this measures about 2 cm. No new or focal infiltrates. Heart size is normal. IMPRESSION: Stable left basilar pulmonary nodule. Chest CT recommended. Electronically signed by Ronni Haney 09/19/2018 11:57 AM
[2018-09-19 12:21] LABS: BASO# 0.03 X1000 (0.0-0.2); BASO% 0.2 % (0.0-0.8); EOS# 0.08 X1000 (0.0-0.7); EOS% 0.6 % (0.0-10.0); HEMATOCRIT 49.7 % (42.0-52.0); HEMOGLOBIN 16.8 g/dL (14.0-18.0); IMM GRAN# 0.02 X1000 (0.0-0.04); IMM GRAN% 0.2 % (0.0-0.5); LYMPH# 2.18 X1000 (1.2-3.4); LYMPH% 17.3 % (20.5-51.1); MCH 29.8 PG (27-31); MCHC 33.8 g/dL (33-37); MCV 88.1 FL (81-99); MONO# 1.29 X1000 (0.11-0.59); MONO% 10.2 % (1.7-9.3); MPV 8.4 FL (7.4-10.4); NEUT# 8.99 X1000 (1.4-6.5); NEUT% 71.5 % (42.2-75.2); PLT 345 X1000 (130-400); RBC 5.64 XMIL (4.7-6.1); RDW 13.1 % (11.5-14.5); WBC 12.59 X1000 (4.8-10.8)
--- NOTE | 2018-09-19 12:24 | EKG Report ---
Test Performed on : 09/19/2018 11:16:01 AM Test Reason : SHOULDER PAIN/PREVIOUS PE Blood Pressure : / mmHG Vent. Rate : 093 BPM Atrial Rate : 093 BPM P-R Int : 176 ms QRS Dur : 072 ms QT Int : 330 ms P-R-T Axes : 040 057 057 degrees QTc Int : 410 ms Normal sinus rhythm. Normal ECG When compared with ECG of 25-AUG-2018 06:41, No significant change was found Unconfirmed Result
[2018-09-19 12:33] LABS: INR 0.86; PROTIME 12.5 Seconds (11.0-16.0)
[2018-09-19 12:34] LABS: PTT 31.9 Seconds (22.3-41.8)
[2018-09-19 12:37] LABS: AGAP 14; ALB/GLOB RATIO 1.3; ALBUMIN 4.4 g/dL (3.5-5.0); ALKALINE PHOSPHATASE 139 U/L (32-122); BUN 6 mg/dL (8-22); CALCIUM 9.2 mg/dL (8.8-10.2); CHLORIDE 100 mmol/L (98-107); CK PROFILE 57 U/L (24-204); COSMO 276; CREATININE 0.6 mg/dL (0.7-1.2); ESTIMATED GFR > 60; GLUCOSE 112 mg/dL (70-104); GOT 13 U/L (10-34); GPT 25 U/L (10-44); POTASSIUM 3.8 mmol/L (3.5-5.1); SODIUM 139 mmol/L (136-145); TCO2 25 mmol/L (25-35); TOTAL BILIRUBIN 0.64 mg/dL (0.20-1.00); TOTAL PROTEIN 7.7 g/dL (6.3-8.3)
--- NOTE | 2018-09-19 13:34 | Diag Imaging Result Doc PS360 ---
CT THORAX W/CONTRAST - 09/19/2018 INDICATION: recent septic embolism chest and back pain COMPARISON: 08/24/2018 FINDINGS: There has been worsening in the ill-defined soft tissue density centered at the right sternoclavicular joint, extending into the anterior mediastinum, anterior pleural space and the surrounding chest wall. At the first rib head, as process measures 4.7 x 8 cm in AP and lateral dimensions. Previously this measured about 4.3 x 7.8 cm. This largely surrounds the right brachiocephalic vein and narrows it. This also completely surrounds the internal mammary artery. This soft tissue density inflammatory process extends into the pectoralis major muscle. There is some slight worsening in mild anterior mediastinal adenopathy. There is also stable mild right hilar adenopathy. There are a few scattered small nodules in the left lung base. The dominant nodule in the lateral left lower lobe which was previously cavitary, is now relatively solid in appearance. This measures about 2 cm. In the medial basilar segment of the left lower lobe a small nodule has significantly decreased in size and now measures less than a centimeter. No new nodules or infiltrates. There is stable severe bony sclerosis of the medial head of the right clavicle. There is a small bony erosion at the articular surface. No other bony abnormalities visible. IMPRESSION: Mixed changes from prior. Slight worsening in the extensive chest wall process centered around the right sternoclavicular joint associated with the abnormal clavicular head. Slight improvement in the nodular densities in the left lower lobe. Strongly considered as an infectious process. Consider fungal infection such as mucormycosis. Fine-needle aspiration of the infectious process at the chest wall for microbial analysis may be prudent. This exam was performed using automated exposure control, adjustment of mA or kV according to patient size, and/or use of iterative reconstruction technique Electronically signed by Ronni Haney 09/19/2018 1:32 PM
--- NOTE | 2018-09-19 14:07 | PROVIDER DOCUMENTATION ---
This chart was entered by Katja Miguel Scribe, acting as scribe for Tomas Yuen CRNP. HPI-Musculoskeletal Pain/Inj - GENERAL Chief Complaint: Shoulder Pain Stated Complaint: BACK PAIN Time Seen by Provider: 09/19/18 11:13 Source: patient, family - HX OF PRESENT ILLNESS-MUSKULOSKELTAL Nature of Presenting Problem: 48 yowm presents to the ed via pov with c/o rt posterior scapula/shoulder burning pain with muscle spasm. pt sts was in ICU for 20 days (fx sternum and ETOH withdrawal) and was DC on 09/11/18. pt sts thought he was getting better and was starting to feel well and 3 days ago pt noted burning and muscle spasm in rt posterior scapula/shoulder. pt sts pain is worsening and on exam and pt is tearful and anxious Quality of Pain: reports: burning Severity in ED: severe Onset/Duration: 3 days ago Timing: still present, intermittent Modifying Factors: improves with: immobilization. worse with: movement, palpation Any recent injury?: Yes (fell in hosp while in ICU) Locality of Occurance: Home Similar Symptoms Previously?: Yes Recently seen or treated by another doctor?: Yes (recenlty dc from ICU at [facility]) Review of Systems - Adult - REVIEW OF SYSTEMS - ADULT Constitutional: denies: chills, fever Eyes: reports: no symptoms reported Ears, Nose, Mouth & Throat: reports: no symptoms reported Cardiovascular: denies: chest pain, palpitations Respiratory: denies: cough, shortness of breath, wheezing Gastrointestinal: denies: abdominal pain, diarrhea, nausea, vomiting Genitourinary: reports: no symptoms reported Musculoskeletal: reports: see HPI, back pain (rt scapula/shoulder), joint pain. denies: muscle weakness, neck pain Integumentary: reports: no symptoms reported Neurological: denies: dizziness/vertigo, headache/migraines Psychiatric: reports: no symptoms reported Endocrine: reports: no symptoms reported Hematologic/Lymphatic: reports: no symptoms reported Allergic/Immunologic: reports: no symptoms reported All Other Systems: Reviewed and Negative Past History - Adult - PAST MEDICAL HISTORY-ADULT Review of Records: reports: Old Records Reviewed, Nursing Assessment Review, Medications Reviewed, Social history reviewed & non-contributory. Major Childhood Illnesses: reports: denies history Cardiovascular: reports: HTN Respiratory: reports: denies history Gastrointestinal: reports: denies history Genitourinary: reports: denies history Musculoskeletal: reports: denies history Neurological: reports: denies history Psychiatric: reports: denies history Endocrine/Immune: reports: denies history Other Conditions: reports: denies history - PRIOR SURGERIES/PROCEDURES Surgical/Procedure History: reports: none - IMMUNIZATION STATUS Childhood Immunizations: See Nurse Assessment Flu Vaccine: See Nurse Assessment - FAMILY HISTORY Family History: reviewed, not pertinent - SOCIAL HISTORY Smoking: cigarettes, greater than 1 pack/day Provider spent 3-5 mins advising pt. on dangers of tobacco.: Discussed manners to quit use, and f/u contacts for add'l counseling. Substance Use: none presently/history of abuse (been clean of ETOH 40 days) Alcohol Use Frequency: sober (former use) Living Situation: family Physical Exam-Injury Related - Physical Exam-Injury Related Initial Vital Signs Reviewed: Yes General Appearance: alert, anxious (and tearful) Eyes: PERRL/EOMI, pink conjunctivae Head, Ears, Nose, Mouth & Throat: moist mucous membranes, normal ENT inspection Neck: full range of motion, supple, normal inspection Respiratory: chest non-tender, lungs clear, normal breath sounds Cardiovascular: normal peripheral pulses, tachycardia (110) Chest/Breast: deferred Abdominal Exam: normal bowel sounds, non tender, soft Male Genitalia: deferred Rectal Exam: deferred Hemoccult Exam: deferred Lymphatic: no adenopathy Back Exam: no CVA tenderness, no vertebral tenderness, decreased range of motion (due to pain), muscle spasm (rt shopulder with tenderness to rt upper scapula and surrounding area) Extremity: normal range of motion, non-tender, normal gait, normal inspection Integumentary: normal color, warm/dry Neurologic: grossly normal, no motor/sensory deficits Psych/Mental Status: normal mood/affect, normal thought content, normal thought process, oriented x 3, anxious, tearful - Glascow Coma Score Best Eye Response (Annabella): (4) open spontaneously Best Verbal Response (Annabella): (5) oriented Best Motor Response (Bean): (6) obeys commands Annabella Total: 15 Progress - PLAN OF CARE/RESULTS Progress/Plan/Lab Results: Vital Signs - 8 hr 09/19/18 11:01 09/19/18 12:11 Temperature 99.6 F Pulse Rate 110 H 90 Respiratory Rate 20 20 Blood Pressure 168/96 133/89 O2 Sat by Pulse Oximetry 96 94 L Laboratory Results - last 24 hr 09/19/18 09/19/18 09/19/18 12:00 12:00 12:00 WBC 12.59 H RBC 5.64 Hgb 16.8 Hct 49.7 MCV 88.1 MCH 29.8 MCHC 33.8 RDW Std Deviation 13.1 Plt Count 345 MPV 8.4 Immature Gran % (Auto) 0.2 Neut % (Auto) 71.5 Lymph % (Auto) 17.3 L [place] % (Auto) 10.2 H Eos % (Auto) 0.6 Baso % (Auto) 0.2 Immature Gran # (Auto) 0.02 Neut # (Auto) 8.99 H Lymph # (Auto) 2.18 [place] # (Auto) 1.29 H Eos # (Auto) 0.08 Baso # (Auto) 0.03 PT INR PTT (Actin FS) Sodium 139 Potassium 3.8 Chloride 100 Carbon Dioxide 25 Anion Gap 14 BUN 6 L Creatinine 0.6 L Estimated GFR/1.73 m2 > 60 BUN/Creatinine Ratio 10 Glucose 112 H Calculated Osmolality 276 Calcium 9.2 Total Bilirubin 0.64 AST 13 ALT 25 Alkaline Phosphatase 139 H Creatine Kinase 57 Troponin T Xpd-L-Njczjyisnkd Pept 36 Total Protein 7.7 Albumin 4.4 Globulin 3.3 Albumin/Globulin Ratio 1.3 09/19/18 09/19/18 12:00 12:00 WBC RBC Hgb Hct MCV MCH MCHC RDW Std Deviation Plt Count MPV Immature Gran % (Auto) Neut % (Auto) Lymph % (Auto) [place] % (Auto) Eos % (Auto) Baso % (Auto) Immature Gran # (Auto) Neut # (Auto) Lymph # (Auto) [place] # (Auto) Eos # (Auto) Baso # (Auto) PT 12.5 INR 0.86 PTT (Actin FS) 31.9 Sodium Potassium Chloride Carbon Dioxide Anion Gap BUN Creatinine Estimated GFR/1.73 m2 BUN/Creatinine Ratio Glucose Calculated Osmolality Calcium Total Bilirubin AST ALT Alkaline Phosphatase Creatine Kinase Troponin T < 0.010 Oas-D-Djsnqugxdoe Pept Total Protein Albumin Globulin Albumin/Globulin Ratio Orders Category Date Time Status Cardiac Monitoring DIRECTED Care 09/19/18 11:33 Active IV Insertion ORDERED Care 09/19/18 11:34 Completed Oxygen Therapy- ED Nursing DIRECTED Care 09/19/18 11:33 Active Saline Loc NOW Care 09/19/18 11:33 Active CHEST-1 VIEW [RAD] Stat Exams 09/19/18 11:[address] THORAX W/CONTRAST [CT] Stat Exams 09/19/18 11:34 Completed ALCOHOL BLOOD Stat Lab 09/19/18 13:56 Uncollected CBC WITH ELECTRONIC DIFF [HEME] Stat Lab 09/19/18 12:00 Completed CK PROFILE [SP CHEM] Stat Lab 09/19/18 12:00 Completed COMPREHENSIVE METABOLIC PANEL [CHEM] Stat Lab 09/19/18 12:00 Completed LACTATE, PLASMA [CHEM] Stat Lab 09/19/18 13:57 Uncollected PRO B-NATRIURETIC PEPTIDE Stat Lab 09/19/18 12:00 Completed PROTIME WITH INR [COAG] Stat Lab 09/19/18 12:00 Completed PTT [COAG] Stat Lab 09/19/18 12:00 Completed TROPONIN T Stat Lab 09/19/18 12:00 Completed Morphine Med 09/19/18 11:34 Discontinued 4 mg IV NOW ONE Morphine Med 09/19/18 13:51 Discontinued 4 mg IV NOW ONE CP/SOB/Palp >45 yrs of Age Stat Oth 09/19/18 11:33 Ordered EKG [EKG] Stat Ther 09/19/18 11:08 Draft I discussed with the pt the findings of his XR, CT, EKG, labs and PE findings. I advised him that I feel he should be admitted, and he agreed with the plan. I consulted Kelsey MESA who agreed to admit the pt. She advised that Dr. Haro would be the admitting physician. Result Diagrams: 09/19/18 12:00 09/19/18 12:00 - REASSESSMENT Reassessment #1 Time Reassessed: 13:51 Status: improving - EKG 1 Time of EKG reading by physician:: 11:16 EKG Read and Signed by:: Joseph Rudolph EKG Interpretation (*Must complete 3 of following elements*): Normal Rate: 93 Rhythm: nsr [place]: normal QRS: normal MT Interval: normal ST Wave: normal - XRAY 1 XRAY: Bilateral XRAY Study: Chest Impression: See EMR Report (CHEST-1 VIEW - 09/19/2018 INDICATION: CP COMPARISON: 09/12/2018 FINDINGS: There is a stable pulmonary nodule in the lateral left lung base.r this measures about 2 cm. No new or focal infiltrates. Heart size is normal. IMPRESSION: Stable left basilar pulmonary nodule. Chest CT recommended. Electronically signed by Ronni Haney 09/19/2018 11:57 AM 09/19/18 [id number] Interpreting Physician: Ronni Haney MD Dictated Date/Time: 09/19/18 1150 cc: Tomas Yuen; None,PCP) - CT/MRI 1 CT Study: Thorax Impression: See EMR Report (CT THORAX W/CONTRAST - 09/19/2018 INDICATION: recent septic embolism chest and back pain COMPARISON: 08/24/2018 FINDINGS: There has been worsening in the ill-defined soft tissue density centered at the right sternoclavicular joint, extending into the anterior mediastinum, anterior pleural space and the surrounding chest wall. At the first rib head, as process measures 4.7 x 8 cm in AP and lateral dimensions. Previously this measured about 4.3 x 7.8 cm. This largely surrounds the right brachiocephalic vein and narrows it. This also completely surrounds the internal mammary artery. This soft tiss ue density inflammatory process extends into the pectoralis major muscle. There is some slight worsening in mild anterior mediastinal adenopathy. There is also stable mild right hilar adenopathy. There are a few scattered small nodules in the left lung base. The dominant nodule in the lateral left lower lobe which was previously cavitary, is now relatively solid in appearance. This measures about 2 cm. In the medial basilar segment of the left lower lobe a small nodule has significantly decreased in size and now measures less than a centimeter. No new nodules or infiltrates. There is stable severe bony sclerosis of the medial head of the right clavicle. There is a small bony erosion at the articular surface. No other bony abnormalities visible. IMPRESSION: Mixed changes from prior. Slight worsening in the extensive chest wall process centered around the right sternoclavicular joint associated with the abnormal clavicular head. Slight improvement in the nodular densities in the left lower lobe. Strongly considered as an infectious process. Consider fungal infection such as mucormycosis. Fine-needle aspiration of the infectious process at the chest wall for microbial analysis may be prudent. This exam was performed using automated exposure control, adjustment of mA or kV according to patient size, and/or use of iterative reconstruction technique Electronically signed by Ronni Haney 09/19/2018 1:32 PM 09/19/18 1332 Interpreting Physician: Ronni Haney MD Dictated Date/Time: 09/19/18 1319 cc: Tomas Yuen; None,PCP) Departure - Departure Date of Disposition Decision: 09/19/18 Time of Disposition Decision: 14:05 DIAGNOSIS: Chest pain, Chest wall pain, Tobacco use disorder Disposition: ADMITTED INPATIENT 09 Certified Medical Emergency: Emergent Condition: Serious Referrals and Follow-Ups: None,PCP [Primary Care Provider] - - Critical Care Note This patient required my direct & personal management of CC.: No Attestation - Physician/ TREY Attestation Patient care was provided by Advanced Practice Provider:: Yes Advanced Practice Provider:: Tomas Yuen Advanced Practice Provider documentation review:: The Mid-level provider documentation, treatment plan and medical decision making was reviewed by the physician who agrees with all treatment and medical decision making by the MLP. The physician spent face to face time with patient:: No Advanced Practice Provider documentation review:: Supervising physician onsite and consulted in the evaluation and care of this patient. The physician did not have a face to face encounter with the patient. This chart was documented by the indicated scribe, (Katja Miguel Scribe) and accurately reflects the services I performed and decisions made by me, Tomas Yuen CRNP, as attested by the provider's signature.
[2018-09-19 15:52] LABS: UR AMPHETAMINES QUAL NONE DETECTED (NONE DETECT); UR BARBITUATES QUAL NONE DETECTED (NONE DETECT); UR BENZODIAZEPIN QUAL PRESUMPTIVE POSITIVE (NONE DETECT); UR CANNABINOIDS QUAL PRESUMPTIVE POSITIVE (NONE DETECT); UR COCAINE QUAL NONE DETECTED (NONE DETECT); UR METHADONE QUAL NONE DETECTED (NONE DETECT); UR OPIATES QUAL PRESUMPTIVE POSITIVE (NONE DETECT); UR OXYCODONE QUAL NONE DETECTED (NONE DETECT); UR PCP QUAL NONE DETECTED (NONE DETECT)
[2018-09-19] MEDS ORDERED: FLEXERIL PO PRN (16:11)
[2018-09-19] MEDS ORDERED: MORPHINE IV PRN (16:11)
[2018-09-19] MEDS ORDERED: LEVAQUIN 500 MG/D5W 500 MG/100 ML IVPB IV SCH (16:11)
[2018-09-19] MEDS ORDERED: ATIVAN PO PRN (16:11)
[2018-09-19] MEDS ORDERED: TYLENOL PO PRN (16:11)
[2018-09-19] MEDS ORDERED: VANCOMYCIN IV PER PHARMACY MISC SCH (16:11)
[2018-09-19] MEDS ORDERED: ATIVAN PO ONE (16:11)
--- NOTE | 2018-09-19 16:38 | HISTORY AND PHYSICAL ---
PRIMARY CARE PROVIDER: None. CHIEF COMPLAINT: Severe pain in the back, neck down to the right shoulder blade. HISTORY OF PRESENT ILLNESS: Mr. Villatoro is a pleasant and very anxious 48-year-old male who had recently been admitted to our service on 08/24/2018 prior to that the patient had been at [facility] and transferred to [place]. At that time he had a syncopal spell. He passed out hit his sternum and was noted to have a fracture to his sternum. He was released from [place] at that time and reported to our ED with shortness of breath with high suspicious for a cavitary lesion and was treated for pneumonia as well as the right chest soft tissue swelling, mass, hematoma of the medial right clavicle that was causing him significant pain. He also went into [facility] at that time. He had a 20 day stay. He reports he has been alcohol-free since that time. He did have a pinch of marijuana when he 1st got home but he has not had any since. He did come back to the ED on 09/12/2018 because he had a fall at home just to be checked out, everything checked out at that time and he was sent back home. He re-presents to the ED today on 09/19. He stated on Tuesday and Tuesday he had a bad head cold, itchy eyes he was treating himself with over-the- counter medications, on Tuesday and Tuesday it progressed to shortness of breath and on Tuesday he started having back and neck pain that went down to his right shoulder blade. It did improve however Tuesday night the pain came back almost felt as if he was having muscle spasm in his right shoulder blade and he felt that his soft tissue edema to his right chest wall was more swollen so he re-presented to the ED. He is extremely anxious, shaking all over. He does not believe that he has had any fever. He did believe he had like a low-grade temperature but no chills. He has not been coughing anything up, no cardiac type chest pain. No headache, no nausea, no vomiting, no diarrhea, no constipation. No issues with urination. Workup in the ED today with a chest CT showed mixed changes from prior, slight worsening in extensive chest wall process centered around the right sternoclavicular joint associated with abnormal clavicular head, slight improvement in the nodular densities in the left lower lobe, strongly consider an infectious process, consider fungal infection such as mucormycosis, fine-needle aspiration of infectious process of the chest wall for microbial analysis may be prudent. We will place him on broad-spectrum antibiotics and will antifungal and will consult Dr. Power with Infectious Disease and treat him for his anxiety as well as pain as well as the possibility for DTs however he states he has been alcohol-free since his last admission. PAST MEDICAL HISTORY: 1. Fractured sternum. 2. Hypertension. 3. Alcohol abuse. 4. Syncopal episodes recently. 5. Recent treatment for pneumonia. PAST SURGICAL HISTORY: None. SOCIAL HISTORY: Is a less than 2 pack per day smoker for 16 years, previously he drank 15-18 beers daily, no hard liquor. He smoked a pinch of marijuana the 1st he got home from his last admission and has been marijuana free since that time. He is currently unemployed. He lives in [place] with his common-law . They have a 22-year-old child together. FAMILY HISTORY: Mother side of the family with several brothers with MIs at the age of 60. Father no medical history. ALLERGIES: Penicillin that caused anaphylaxis as a young child. HOME MEDICATIONS: Have not been verified. REVIEW OF SYSTEMS: 14 point review of systems completely negative except for those mentioned in HPI. PHYSICAL EXAMINATION: VITAL SIGNS: Temperature is 99.6 degrees, heart rate 91, respirations 20, blood pressure 129/92, O2 is 96% on room air. GENERAL: Mr. Villatoro is a 48-year-old male who was pleasant but extremely anxious and nervous on the stretcher somewhat tearful. However he is appropriate. HEENT: Atraumatic, normocephalic. PERRL. NECK: Supple. Trachea midline. He does have poor dentition . CV: S1, S2 appreciated. No murmurs, gallops or rubs noted. No lower extremity edema. No JVD. PULMONARY: Bilateral breath sounds clear to auscultation. He is sore to his right anterior chest area. GI: Soft, nontender, nondistended. Positive bowel sounds 4 quads. EXTREMITIES: No cyanosis or clubbing. NEURO: Again he is anxious, nervous appearing but alert and oriented x4, follows commands, moves all extremities. SKIN: Warm, dry and intact. DIAGNOSTIC DATA: Chest CT shows mixed changes from prior slightly worsening in the extensive chest wall process centered around the right sternoclavicular joint associated with abnormal clavicular head, slight improvement in the nodular densities in the left lower lobe strongly consider infectious process, consider fungal infection such as mucormycosis fine-needle aspiration of the infectious process at the chest wall for microbial analysis may be prudent. LABORATORY DATA: White count 12, hemoglobin and hematocrit 16, 49, platelet count 345,000, sodium 139, potassium 3.8, BUN 6, creatinine 0.6, blood glucose 112, alkaline phosphatase 139, troponin less than 0.010, plasma lactate is 1.1. Serum alcohol level is none, tox screen is pending. ASSESSMENT AND PLAN: 1. Worsening in the extensive chest wall process centered around the right sternoclavicular joint associated with abnormal clavicular head. CT recommend fine-needle aspiration of the infectious process of the chest wall for microbial analysis of possible fungal infection. Will start broad-spectrum antibiotics as well as micafungin. 2. Recent treatment for pneumonia cavitary. Again we will continue with IV antibiotics, consult Dr. Mauro Power. Blood cultures are currently pending, sputum culture pending. 3. Fractured sternum aware. 4. Back, neck and right shoulder blade pain. We will continue with p.o. Percocet and IV pain medication for breakthrough pain. 5. Anxiety. We will continue with p.o. Ativan p.r.n. 6. Recent admission where he went through delirium tremens. We will watch him closely for any DTs however he has not had any alcohol since his last admission. His alcohol level was 0. We continue to encourage his alcohol cessation. 7. Tobacco use aware. 8. Marijuana use. Patient has not used marijuana since the 1st day he got home from discharge. 9. Hypertension not on any home medications. 10. Further recommendation to follow physician evaluation, physician consult and laboratory data and diagnostic data. Dictated by ELENA Martinez for Timo Goodman MD Addendum: Patient seen and examined by myself. Agree with ELENA note. It reflects my assessment and plan. Patient is being admitted to hospital for worsening infection in the right sternoclavicular and sternal are so Dr. Power from [place] has recommended evaluation by CV surgery. Will arrange transfer to [facility]. cc: Mauro Power MD MTDD
[2018-09-19] MEDS ORDERED: VANCOMYCIN 2 GM in NS 500 ML IV SCH (18:00)
[2018-09-19] MEDS: PERCOCET-10 PO PRN ×2 (18:20→22:38)
--- NOTE | 2018-09-19 20:43 | INFECTIOUS DISEASE PROGRESS NO ---
DATE: 09/19/2018 PRESENT ILLNESS: Mr. 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 RECOMMENDATIONS: Dr. Power spoke with Dr. Laurent, who thinks this patient should be sent to [place], so the plan at this point is to have him sent to be admitted by a hospitalist in [place], and Dr. Doug Gunderson, cardiothoracic surgeon, will see him. Dr. Power has spoken with Dr. Haro about transfer to [place] as soon as possible. MEDICATIONS: At this point, he is receiving IV vancomycin and Levaquin. PHYSICAL EXAMINATION: Vital signs: Temperature is 99.6 degrees, pulse rate 91, respiratory rate 20, blood pressure 129/92, O2 saturation 96% on room air. General: This is an anxious middle- aged gentleman who is lying in the bed currently with mild distress and pain to his right clavicular area. HEENT: Atraumatic, normocephalic. Conjunctivae are pink. Cardiovascular: Heart rate and rhythm are regular. Normal sinus rhythm on the monitor. Pedal and radial pulses are palpable bilaterally. No edema noted. Respiratory: Lung sounds are clear to auscultation. Abdomen: Soft, round and nontender. Bowel sounds are active. Neurologic: He is awake, alert, and oriented. Able to move all extremities. Limitations to the right upper extremity due to pain. LABORATORY AND X-RAY: Today his white count is 12.59, hemoglobin 16.8, platelet count 345,000, creatinine is 0.6, estimated GFR is greater than 60, total bilirubin 0.64, AST 13, ALT 25, alkaline phosphatase 139. Once again his urine toxicology shows cannabinoids, benzodiazepines and opiates. Blood cultures are pending. A CT of his chest has shown right sternoclavicular abnormalities with nodular densities and the possibility of a mucormycosis is mentioned. His chest x-ray does show a stable left basilar pulmonary nodule. ASSESSMENT AND PLAN: Mr. 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 At this point, we will continue IV vancomycin, and change the IV Levaquin to oral, hoping for a transfer to [place] as soon as possible. These plans have been arranged by Dr. Power. COMORBIDITIES: For Mr. Villatoro include cigarette smoking, alcohol abuse and deconditioning due to recent extensive hospitalization with pneumonia and delirium tremors from alcohol withdrawal. Dictated by ELENA Zamudio for Mauro Power MD This chart was documented by, ELENA Zamudio and accurately reflects the services performed, treatment plan and medical decisions as attested by the providers signature Mauro Power MD. cc: Mauro Power MD [facility]
[2018-09-19 23:45] VITALS: BP 149/81
[2018-09-20] MEDS ORDERED: LEVAQUIN PO SCH (09:00)
--- NOTE | 2018-09-20 10:54 | DISCHARGE SUMMARY ---
ADMISSION DATE: 09/19/2018 DISCHARGE DATE: 09/20/2018 DISPOSITION: Patient was transferred to [facility] on 09/20/2018. PRIMARY CARE PROVIDER: None. CONSULTATIONS: Mauro Power MD, with Infectious Disease. PERTINENT PROCEDURES: Chest CT: Mixed changes from prior, slightly worsening in the extensive chest wall process centered around the right sternoclavicular joint associated with the abnormal clavicular head. Slight improvement in the nodular densities in the left lower lobe. Strongly consider an infectious process. Consider fungal infection such as mucormycosis. Fine-needle aspiration of the infectious process of the chest wall for microbial analysis may be prudent. DISCHARGE DIAGNOSES: 1. 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 Dr. Mauro Power was brought on board. Initial CT showed possibility of fungal infection. He was started on IV vancomycin, IV Levaquin, as well as micafungin. The patient has an allergy to penicillin and sulfa. Dr. Power looked over the imaging. He felt the patient should be sent to [place]. He was admitted by the hospitalist service at [facility] as well as accepted by Dr. Doug Gunderson, cardiothoracic surgeon. 2. Alcohol abuse. Patient has not used alcohol since last admission. 3. Tobacco abuse. Patient was educated on smoking cessation, as well as the means to quit. 4. Marijuana use. The patient since his last discharge has only had 1 hit of marijuana. We continued with encouraging of abstinence. 5. Recent hospitalization with pneumonia and delirium tremens secondary to alcohol withdrawal. Aware. 6. Anxiety. The patient was given p.r.n.'s. HOSPITAL COURSE: Briefly, Mr. Villatoro is a pleasant 48-year-old male, who carries a past medical history of alcohol abuse, tobacco abuse, and marijuana use. The patient over a month ago had suffered a fall with a sternal fracture. He was treated in [place]. He presented back to [facility] with continued pain. He was found to be in alcohol withdrawal, as well as to have pneumonia, was admitted to the hospital and went through DTs for 20 days. He was released and sent back home. He reported to the ED on 09/12/2018 after a fall at home to be checked out secondary to pain. There was no further injury. He states over the weekend he got a head cold that he was treating over the counter. He began having some shortness of breath, low-grade fever, and the pain returned to his neck and shoulder blade area. He also felt like his subcutaneous edema had also returned to his left upper chest area. Additional imaging with a chest CT showed mixed changes from prior slightly worsening in the extensive chest wall process centered at the right sternoclavicular joint associated with abnormal clavicular head and slight improvement in the nodular densities in the left lower lobe. One strongly considered infectious process as well as fungal infection and recommended a fine-needle aspiration for the infectious process in the chest wall for microbial analysis. We admitted him to the hospitalist services, started him on IV vancomycin and Levaquin as well as micafungin, and consulted Dr. Mauro Power. He felt the patient had a septic sternoclavicular joint with possible mediastinal extension. He continued the patient on vancomycin and changed his IV Levaquin to p.o. and wanted him transferred to [facility] to be seen by Dr. Doug Gunderson with Cardiothoracic Surgery. He was transferred sometime during the night on 09/20/2018. LAST VITAL SIGNS RECORDED: Temperature 99.2 degrees, heart rate 99, blood pressure 149/81, O2 is 94% on room air MEDICATIONS AT THE TIME OF TRANSFER: 1. Levaquin 500 mg p.o. daily. 2. Vancomycin 2 g IV q.12 h. 3. Flexeril 10 mg p.o. t.i.d. p.r.n. 4. Morphine 2 mg IV q.6 h. p.r.n. 5. Percocet 10 mg 1 each p.o. q.4 h. p.r.n. 6. Ativan 1 mg p.o. t.i.d. p.r.n. anxiety. 7. Tylenol 650 mg p.o. q.4 h. p.r.n. FOLLOW-UP: Mr. Villatoro was transferred to [facility] for consultations with Dr. Doug Gunderson, a cardiothoracic surgeon. Dictated by ELENA Martinez for Timo Goodman MD Addendum: Patient seen and examined by myself. Agree with ELENA note. It reflects my assessment and plan. Patient is being discharged in stable condition transferred to [facility]. cc: MD Mauro Mendoza MD MTDD
== END 2018-09-20 01:50 | disposition short-term general hospital (02) | DRG 548 ==
LOC: ED 10:59 → 3N 15:10
PROVIDERS: ATTEND Internal Medicine
CPT/HCPCS: 71010; 71045; 71260; 80053; 80101; 80301; 80307; 80320; 80324; 80345; 80346; 80353; 80358; 80361; 80365; 82055; 82550; 83605; 83880; 83992; 84484; 85025; 85610; 85730; 87040; 93005; 94640; 94799; A9270; G0431; G0434; G0479; G0480; G6040; J1956; J2270; J3370; J7040